=== PATIENT | male | born 1980 | race Caucasian/White ===

== ENCOUNTER 2021-10-17 20:05 | Emergency (ER) | payer OTHER, SELFPAY ==
--- NOTE | ~2021-10-17 | XR_ITS ---
EXAMINATION: XR CHEST CLINICAL INFORMATION: Resolved chest pain COMPARISON: None TECHNIQUE: Frontal view of the chest was obtained. FINDINGS: No significant abnormality is noted involving the heart, lungs, mediastinum, bony thorax or soft tissues. XR/XR chest 1V IMPRESSION: Unremarkable examination.
[2021-10-17 20:34] VITALS: BP 158/97; PULSE 110; RESP 20; O2SAT 99; BMI 30.4
--- NOTE | 2021-10-17 20:39 | ECG_ITS ---
Test Reason : CP Blood Pressure : / mmHG Vent. Rate : 092 BPM Atrial Rate : 092 BPM P-R Int : 150 ms QRS Dur : 092 ms QT Int : 368 ms P-R-T Axes : 061 040 027 degrees QTc Int : 455 ms Normal sinus rhythm Possible Left atrial enlargement Otherwise normal EKG No previous ECGs available Referred By: Malgorzata Mcgrath Electronically Signed By:MARY MARIA
[2021-10-17 21:01] LABS: MANUAL DIFF FLAG NO
[2021-10-17 21:02] LABS: Basophils Percent Auto 0.5 % (0-2); Eosinophils Absolute Auto 0.7 X10*3/uL (0.0-0.4); Eosinophils Percent Auto 8.4 % (0-4); Hematocrit 43.3 % (42.0-52.0); Hemoglobin 15.1 g/dl (14.0-18.0); Imm Gran Abs Auto 0.02 X10*3/uL (0.00-0.03); Imm Gran Pct Auto 0.3 % (0.0-0.4); Lymphocytes Absolute Auto 2.3 X10*3/uL (1.2-4.9); Lymphocytes Percent Auto 29.3 % (20-40); Mean Corpuscular HGB Conc 34.9 g/dl (31.0-36.0); Mean Corpuscular Hemoglobin 28.8 pg (27.0-33.0); Mean Corpuscular Volume 82.5 fL (80.0-98.0); Mean Platelet Volume 8.9 fL (9.4-12.4); Monocytes Absolute Auto 0.5 X10*3/uL (0.1-1.2); Monocytes Percent Auto 5.9 % (2-11); Neutrophils Absolute Auto 4.3 x10*3/uL (2.0-8.3); Neutrophils Percent Auto 55.6 % (45-73); Platelet Count 308 X10*3/uL (160-400); Red Blood Count 5.25 X10*6/uL (4.60-5.80); Red Cell Distribution Width 13.4 % (11.0-16.0); White Blood Count 7.8 X10*3/uL (4.8-10.8)
[2021-10-17 21:17] LABS: Anion Gap 11 (12-20); Blood Urea Nitrogen 14 mg/dL (9-16); Calcium 9.9 mg/dL (8.4-10.2); Carbon Dioxide 26 mmol/L (22-29); Chloride 109 mmol/L (96-108); Creatinine Clr Calc Pharmacy 100.3; Estimated Glomerular Filt Rate > 60; Glucose Random 79 mg/dL (60-115); Potassium 4.3 mmol/L (3.3-5.1); Sodium 142 mmol/L (135-145)
[2021-10-17 21:21] LABS: Troponin-I High Sensitivity 13.6 ng/L (<3.5-35.0)
--- NOTE | 2021-10-17 22:36 | ED.CHESTPAIN ---
HPI - Chest Pain General Chief Complaint: Chest Pain Stated Complaint: chest pain ,elevated bps Time Seen by Provider: 10/17/21 22:28 Source: patient Mode of arrival: ambulatory Limitations: no limitations History of Present Illness HPI narrative: Patient comes to the emergency room complaining of intermittent chest pain. It started this morning, lasted for about an hour, then it went away. This afternoon patient has recurrent chest pain that lasted for approximately 20 minutes and then it self-resolved. At this time, patient states that he is asymptomatic. Patient denies shortness of breath, no palpitations, no abdominal pain. Related Data Allergies Allergy/AdvReac Type Severity Reaction Status Date / Time No Known Allergies Allergy Verified 10/17/21 22:29 Review of Systems Review of Systems: Constitutional : No Weight loss, No Fever, No Chills, No Night Sweats, No Fatigue, No Malaise ENT/Mouth : No Hearing loss, No Ear Pain, No Nasal Congestion, No Sinus Pain, No Hoarseness, No sore throat, No Rhinorrhea, No Swallowing Difficulty Eyes: No Eye Pain, No Swelling, No Redness, No Foreign Body, No Discharge, No Vision Changes Cardiovascular : Intermittent Chest Pain, No SOB, No Dyspnea on Exertion, No Orthopnea, No Edema, No Palpitations Respiratory : No Cough, No Sputum, No Wheezing, No Smoke Exposure, No Dyspnea Gastrointestinal : No Nausea, No Vomiting, No Diarrhea, No Constipation, No abdominal Pain, No Hematochezia, No Melena Genitourinary : no irregular bleeding, No Dysuria, No Urinary Frequency, No Hematuria, No Urinary Incontinence, No Urgency, No Flank Pain, No Urinary Flow Changes, No Hesitancy Musculoskeletal : No joint pain, No Myalgias, No Joint Swelling Skin : No Skin Lesions, No rash Neuro : No Weakness, No Numbness, No Paresthesias, No Loss of Consciousness, No Dizziness, No Headache Psych : No Anxiety/Panic, No Depression, No SI/HI/AH/VH, No Social Issues, Heme/Lymph: No Bruising, No Bleeding,No Lymphadenopathy Endocrine : No Polyuria, No Polydipsia, No Temperature Intolerance PMFSH Past Medical History Medical History Anxiety Depression Hx of completed stroke Hx of hepatitis C Indigestion Social History Social History Advance Directives: No Advance Directives Information Provided: Yes Physical Exam Vital Signs: Vital Signs: Last Vital Signs Pulse 110 H 10/17/21 20:34 Resp 20 10/17/21 20:34 BP 158/97 H 10/17/21 20:34 Pulse Ox 99 10/17/21 20:34 BMI result Body Mass Index 30.4 Const: Other: Appearance: Alert. Oriented X3. No acute distress. Eyes: Pupils equal, round and reactive to light. ENT: Pharynx normal. Neck: Normal inspection. Neck supple. No lymph nodes noted. No crepitus CVS: Normal heart rate and rhythm. Pulses normal. Normal S1 and S2 Respiratory: No respiratory distress. Breath sounds normal. No Wheezing. No rales Abdomen: Soft and nontender. No rigidity. No distention. good BS x4 Skin: Skin warm and dry. Normal skin color. Normal skin turgor. Extremities: No lower extremity edema. No lower extremity edema. No Lacerations. No Rash Neuro: Oriented X 3. No motor deficit. No sensory deficit. Moving all extermities. No slurred speech. Course Course Course Narrative: Patient's troponin will be repeated at midnight the sodas and EKG. Patient's troponin are stable, reviewed EKG has no acute changes. At this time, patient remains asymptomatic. Patient likely having musculoskeletal chest pain rather than cardiac. Patient instructed that if he continues having intermittent chest pain, he needs to follow up with his primary care physician and he may be a candidate for referral for a stress test MDM - Chest Pain Lab Data Result diagrams: 10/17/21 20:52 10/17/21 20:52 Labs: Lab Results 10/17/21 10/17/21 10/17/21 Range/Units 20:52 20:52 20:52 WBC 7.8 (4.8-10.8) X10*3/uL RBC 5.25 (4.60-5.80) X10*6/uL Hgb 15.1 (14.0-18.0) g/dl Hct 43.3 (42.0-52.0) % MCV 82.5 (80.0-98.0) fL MCH 28.8 (27.0-33.0) pg MCHC 34.9 (31.0-36.0) g/dl RDW 13.4 (11.0-16.0) % Plt Count 308 (160-400) X10*3/uL MPV 8.9 L (9.4-12.4) fL Immature Gran % (Auto) 0.3 (0.0-0.4) % Neut % (Auto) 55.6 (45-73) % Lymph % (Auto) 29.3 (20-40) % Chilton % (Auto) 5.9 (2-11) % Eos % (Auto) 8.4 H (0-4) % Baso % (Auto) 0.5 (0-2) % Lymph # (Auto) 2.3 (1.2-4.9) X10*3/uL [place]ilton # (Auto) 0.5 (0.1-1.2) X10*3/uL Eos # (Auto) 0.7 H (0.0-0.4) X10*3/uL Baso # (Auto) 0.0 (0.0-0.2) X10*3/uL Abs Immat Gran (auto) 0.02 (0.00-0.03) X10*3/uL Absolute Neuts (auto) 4.3 (2.0-8.3) x10*3/uL Absolute Nucleated RBC 0.000 (0.0-0.012) X10*3/uL Nucleated RBC % (auto) 0.0 (0.0-0.2) /100WBC Sodium 142 (135-145) mmol/L Potassium 4.3 (3.3-5.1) mmol/L Chloride 109 H (96-108) mmol/L Carbon Dioxide 26 (22-29) mmol/L Anion Gap 11 L (12-20) BUN 14 (9-16) mg/dL Creatinine 1.07 (0.5-1.4) mg/dL Estim Creat Clear Calc 100.3 Estimated GFR > 60 Random Glucose 79 (60-115) mg/dL Calcium 9.9 (8.4-10.2) mg/dL Troponin I High Sens 13.6 (<3.5-35.0) ng/L 10/17/21 10/18/21 Range/Units 23:07 00:20 WBC (4.8-10.8) X10*3/uL RBC (4.60-5.80) X10*6/uL Hgb (14.0-18.0) g/dl Hct (42.0-52.0) % MCV (80.0-98.0) fL MCH (27.0-33.0) pg MCHC (31.0-36.0) g/dl RDW (11.0-16.0) % Plt Count (160-400) X10*3/uL MPV (9.4-12.4) fL Immature Gran % (Auto) (0.0-0.4) % Neut % (Auto) (45-73) % Lymph % (Auto) (20-40) % Chilton % (Auto) (2-11) % Eos % (Auto) (0-4) % Baso % (Auto) (0-2) % Lymph # (Auto) (1.2-4.9) X10*3/uL Chilton # (Auto) (0.1-1.2) X10*3/uL Eos # (Auto) (0.0-0.4) X10*3/uL Baso # (Auto) (0.0-0.2) X10*3/uL Abs Immat Gran (auto) (0.00-0.03) X10*3/uL Absolute Neuts (auto) (2.0-8.3) x10*3/uL Absolute Nucleated RBC (0.0-0.012) X10*3/uL Nucleated RBC % (auto) (0.0-0.2) /100WBC Sodium (135-145) mmol/L Potassium (3.3-5.1) mmol/L Chloride (96-108) mmol/L Carbon Dioxide (22-29) mmol/L Anion Gap (12-20) BUN (9-16) mg/dL Creatinine (0.5-1.4) mg/dL Estim Creat Clear Calc Estimated GFR Random Glucose (60-115) mg/dL Calcium (8.4-10.2) mg/dL Troponin I High Sens 13.1 13.1 (<3.5-35.0) ng/L ECG Data ECG #1: Attestation: I personally reviewed and interpreted this ECG as follows: (Heart rate 92, no ST segment depression elevation, no T-wave inversion, QTC 455) ECG #2: Attestation: I personally reviewed and interpreted this ECG as follows: (Heart rate 84, no ST segment depression elevation, no T-wave inversion, QTC 472) Discharge Plan Discharge Clinical Impression: Atypical chest pain Patient Disposition: Home, Self-Care Instructions: Chest Pain (ED), Chest Wall Pain (ED) Additional Instructions: Please follow-up with your primary care physician tomorrow. If you have any worsening or new symptoms, please return to the emergency room or call 911
[2021-10-17 23:31] LABS: Troponin-I High Sensitivity 13.1 ng/L (<3.5-35.0)
--- NOTE | 2021-10-18 00:01 | ECG_ITS ---
Test Reason : REPEAT Blood Pressure : / mmHG Vent. Rate : 084 BPM Atrial Rate : 084 BPM P-R Int : 156 ms QRS Dur : 094 ms QT Int : 400 ms P-R-T Axes : 058 032 031 degrees QTc Int : 472 ms Normal sinus rhythm Normal ECG No significant changes when compared with the previous EKG of 17 oct 2021 Referred By: Malgorzata Mcgrath Electronically Signed By:MARY MARIA
[2021-10-18 00:47] LABS: Troponin-I High Sensitivity 13.1 ng/L (<3.5-35.0)
== END 2021-10-18 01:31 | disposition home or self-care (01) ==
PROVIDERS: Emergency Provider Emergency Medicine; PCP Physician Assistant
DX: R07.9 Chest pain, unspecified (principal); Z79.899 Other long term (current) drug therapy
CPT/HCPCS: 36415; 71045; 80048; 84484; 85025; 93005; 99284

== ENCOUNTER 2022-01-30 21:58 | Emergency (ER) | payer OTHER, SELFPAY ==
[2022-01-30 22:08] VITALS: BP 148/93; PULSE 108; RESP 16; TEMP 36.1; O2SAT 98; BMI 30.4
--- NOTE | 2022-01-30 23:32 | ED.GENADULT ---
HPI - General Adult General Chief complaint: General Medical Stated complaint: needs meds refill Time Seen by Provider: 01/30/22 22:39 Source: patient Mode of arrival: ambulatory History of Present Illness HPI narrative: 41-year-old male with past medical history anxiety, depression, CVA, hepatitis-C, presenting to the ED complaining of needing medication refill of his Doxepin as has been out for 3 days. Patient states he resides at [facility] in [place], they control/ manage his medications, unclear why he is out. States he has been unable to sleep without the medication. Admits memory issues from prior CVA and forgets during the day that he has been out of the med until at night when he is supposed to take it. denies SI/HI. Denies being out of any other medications Related Data Home Medications Medication Instructions Recorded Confirmed acetaminophen 650 mg 650 mg PO Q12H 01/03/22 01/03/22 tablet,extended release (Tylenol Arthritis Pain) aspirin 81 mg tablet,delayed 81 mg PO DAILY 01/03/22 01/03/22 release atomoxetine 40 mg capsule 40 mg PO QAM 01/03/22 01/03/22 (Strattera) buprenorphine 100 mg/0.5 mL mg SUBCUT 01/03/22 01/03/22 solution,exten.rel.subcutaneous syringe (Sublocade) bupropion HCl 150 mg tablet,12 hr 150 mg PO BID 01/03/22 01/03/22 sustained-release (Wellbutrin SR) calcium carb 800 mg-magnes hydrox ml PO 01/03/22 01/03/22 270 mg-simeth 80 mg/10 mL oral susp (Mylanta Tonight) clonidine HCl 0.1 mg tablet 0.1 mg PO BEDTIME 01/03/22 01/03/22 doxepin 50 mg capsule 50 mg PO BEDTIME 01/03/22 01/03/22 hydroxyzine HCl 50 mg tablet 50 mg PO BID 01/03/22 01/03/22 hydroxyzine pamoate 100 mg capsule 100 mg PO BEDTIME 01/03/22 01/03/22 lisdexamfetamine 10 mg capsule 10 mg PO DAILY 01/03/22 01/03/22 (Vyvanse) magnesium hydroxide 2,400 mg/10 mL 10 ml PO DAILY PRN 01/03/22 01/03/22 oral suspension (Milk Of Tammy Concentrated) naloxone 4 mg/actuation nasal 4 mg INTRANASAL Q2M PRN 01/03/22 01/03/22 spray (Narcan) nicotine (polacrilex) 4 mg buccal 4 mg BUCCAL Q2-4H PRN 01/03/22 01/03/22 lozenge nicotine 21 mg/24 hr daily 1 patch TRANSDERMAL DAILY 01/03/22 01/03/22 transdermal patch Previous Rx's Medication Instructions Recorded ibuprofen 400 mg tablet 400 mg PO Q12H PRN 30 Days #60 tab 01/03/22 pantoprazole 40 mg tablet,delayed 40 mg PO DAILY 90 Days #90 tab 01/03/22 release doxepin 50 mg capsule 50 mg PO BEDTIME #1 cap 01/30/22 Allergies Allergy/AdvReac Type Severity Reaction Status Date / Time No Known Allergies Allergy Verified 01/03/22 11:59 Review of Systems Review of Systems: Constitutional: No Fever, No Chills, No Fatigue, No Malaise ENT/Mouth: No Ear Pain, No sore throat, No Rhinorrhea Eyes: No Eye Pain, No Swelling, No Redness Cardiovascular: No Chest Pain, No SOB Respiratory: No Cough, No Dyspnea Gastrointestinal: No Nausea, No Vomiting, No Diarrhea, No Abdominal pain Musculoskeletal: No joint pain, No Myalgias, No Joint Swelling Skin: No Skin Lesions, No rash Neuro: No Weakness, No Headache Psych: No Anxiety/Panic, No Depression, No SI/HI/AH/VH, No Social Issues Yes all other systems are reviewed and are negative [facility] Past Medical History Attestation statement: The following information was validated with the patient. Medical History Anxiety Depression Hx of completed stroke Hx of hepatitis C Indigestion Family History Family History Father No problems noted. Mother No problems noted. Social History Social History Housing: House Alcohol intake: never Patient Tobacco Use Status: Current everyday Tobacco user Tobacco use type: Cigarette Cigarette Packs Per Day: 1 Cigarettes Per Day: 10 e-Cigarette/Vaping Use: Never Used Advance Directives: No Advance Directives Information Provided: No service: No Current occupational status: disabled Physical Exam ED Vital Signs: Vital Signs - 24 hr 01/30/22 22:08 Temperature 97.0 F Pulse Rate 108 H Respiratory Rate 16 Blood Pressure 148/93 H Pulse Oximetry 98 BMI result Body Mass Index 30.4 Const General: cooperative, healthy appearing, comfortable, no acute distress and well developed Orientation/consciousness: patient oriented x3 Limitations: no limitations HENMT Head: Yes normal to inspection and Yes atraumatic Ears: hearing grossly normal bilaterally General nose exam: Normal external nose present Face and sinus: Yes normal facial exam Eyes General: appearance normal, both eyes and all related structures EOM: EOMs intact bilaterally Neck Neck: Yes normal visual inspection and Yes no meningeal signs Resp Effort & Inspection: normal respiratory effort and no respiratory distress Cardio Rate: regular rate Heart sounds: S1 normal heart sound present and S2 normal heart sound present Skin Rashes: no rashes Wounds: no wounds Neuro General: patient oriented x3 and no meningeal signs Gait exam (Neuro): Normal gait present Extrem General: Yes normal to inspection Psych Attitude: cooperative Thought content: suicidality and no homicidality Insight: Good insight present (Psych) Medical Decision Making MDM Narrative Medical decision making narrative: 41-year-old male with past medical history anxiety, depression, CVA, hepatitis-C, presenting to the ED complaining of needing medication refill of his Doxepin as has been out for 3 days. On exam initially tachycardic, NAD/nontoxic appearing. Her medication refill history refilled 30 days worth of his Doxepin on 12/26 Spoke to staff member from [facility] Valdemar waldrop, confirmed patient has been out of his Doxepin x2 days. Report staff members hold on to medication bottles and dispensing medications to patient, however patient is responsible for calling in refills to pharmacy. > Due to patient's memory issues (from prior CVA) has not called in script. Discussed with patient will call in 1 pill dose of [facility]in to [facility] [address] and he needs to contact his prescriber tomorrow for appropriate refill Medical Records Medical records reviewed: Yes I reviewed the patient's medical records. Lab Data Lab results reviewed: Yes I reviewed the patient's lab results. Discharge Plan Discharge Clinical Impression: Medication refill Patient Disposition: Home, Self-Care Instructions: Medicine Refill (ED) Additional Instructions: 1 pill of your [facility] Please call your provider tomorrow for proper refill/remainder of your medication Prescriptions: New doxepin 50 mg capsule 50 mg PO BEDTIME Qty: 1 0RF No Action aspirin 81 mg tablet,delayed release (DR/EC) 81 mg PO DAILY 0RF clonidine HCl 0.1 mg tablet 0.1 mg PO BEDTIME 0RF doxepin 50 mg capsule 50 mg PO BEDTIME 0RF naloxone [Narcan] 4 mg/actuation spray,non-aerosol 4 mg intranasal Q2M PRN0RF Rx Instructions: spray 1 dose into ONE nostril; alternate nostrils w each dose until help arrives Mylanta Tonight 800-270-80 mg/10 mL suspension PO 0RF hydroxyzine HCl 50 mg tablet 50 mg PO BID 0RF hydroxyzine pamoate 100 mg capsule 100 mg PO BEDTIME 0RF atomoxetine [Strattera] 40 mg capsule 40 mg PO QAM 0RF Vyvanse 10 mg capsule 10 mg PO DAILY 0RF bupropion HCl [Wellbutrin SR] 150 mg tablet sustained-release 12 hr 150 mg PO BID 0RF Sublocade 100 mg/0.5 mL solution, extended rel syringe subcut 0RF acetaminophen [Tylenol Arthritis Pain] 650 mg tablet extended release 650 mg PO Q12H 0RF nicotine 21 mg/24 hr patch 24 hour 1 patch transdermal DAILY 0RF nicotine (polacrilex) 4 mg lozenge 4 mg buccal Q2-4H PRN0RF magnesium hydroxide [Milk Of Magnesia Concentrated] 2,400 mg/10 mL suspension 10 ml PO DAILY PRN0RF ibuprofen 400 mg tablet 400 mg PO Q12H PRN (Reason: pain) 30 Days Qty: 60 2RF pantoprazole 40 mg tablet,delayed release (DR/EC) 40 mg PO DAILY 90 Days Qty: 90 1RF Referrals: [facility] [Provider Group] - 2 days Ryan Summers PA-C [Physician Machine Cloth Examiner] - 1 day
[2022-01-30 23:57] VITALS: BP 140/100; PULSE 102; RESP 17; TEMP 37.1; O2SAT 96
== END 2022-01-31 00:07 | disposition home or self-care (01) ==
PROVIDERS: Emergency Provider Emergency Medicine
DX: Z76.0 Encounter for issue of repeat prescription (principal); Z79.899 Other long term (current) drug therapy
CPT/HCPCS: 99282; 99284

== ENCOUNTER 2022-05-15 21:00 | Emergency (ER) | payer OTHER, SELFPAY ==
[2022-05-15 21:08] VITALS: BP 151/104; PULSE 108; RESP 18; TEMP 36.8; O2SAT 97; BMI 30.8
--- NOTE | 2022-05-15 21:27 | ED.RECABL ---
HPI - Recheck/Abnormal Lab/Rx General Chief Complaint: General Medical Stated Complaint: med refill Time Seen by Provider: 05/15/22 21:24 Source: patient Mode of arrival: ambulatory Limitations: no limitations History of Present Illness HPI narrative: 42-year-old male presenting to the ED for medication refill for his Doxepin 75 mg to be taken every bed night reports that he last took last night. Denies any other symptoms related to this including SI/HI/auditory visualizations thoughts of self-injury or any other symptoms complaints or concerns at this time. MD complaint: medication refill request Related Data Home Medications Medication Instructions Recorded Confirmed acetaminophen 650 mg 650 mg PO Q12H 01/03/22 04/01/22 tablet,extended release (Tylenol Arthritis Pain) aspirin 81 mg tablet,delayed 81 mg PO DAILY 01/03/22 04/01/22 release atomoxetine 40 mg capsule 40 mg PO QAM 01/03/22 04/01/22 (Strattera) bupropion HCl 150 mg tablet,12 hr 150 mg PO BID 01/03/22 04/01/22 sustained-release (Wellbutrin SR) calcium carb 800 mg-magnes hydrox ml PO 01/03/22 04/01/22 270 mg-simeth 80 mg/10 mL oral susp (Mylanta Tonight) clonidine HCl 0.1 mg tablet 0.1 mg PO BEDTIME 01/03/22 04/01/22 hydroxyzine HCl 50 mg tablet 50 mg PO BID 01/03/22 04/01/22 hydroxyzine pamoate 100 mg capsule 100 mg PO BEDTIME 01/03/22 04/01/22 lisdexamfetamine 10 mg capsule 10 mg PO DAILY 01/03/22 04/01/22 (Vyvanse) magnesium hydroxide 2,400 mg/10 mL 10 ml PO DAILY PRN 01/03/22 04/01/22 oral suspension (Milk Of Magnesia Concentrated) naloxone 4 mg/actuation nasal 4 mg intranasal Q2M PRN 01/03/22 04/01/22 spray (Narcan) nicotine (polacrilex) 4 mg buccal 4 mg buccal Q2-4H PRN 01/03/22 04/01/22 lozenge nicotine 21 mg/24 hr daily 1 patch transdermal DAILY 01/03/22 04/01/22 transdermal patch buprenorphine 100 mg/0.5 mL 300 mg subcut 4XW 04/01/22 04/01/22 solution,exten.rel.subcutaneous syringe (Sublocade) Previous Rx's Medication Instructions Recorded ibuprofen 400 mg tablet 400 mg PO Q12H PRN pain 30 days 01/03/22 #60 tabs pantoprazole 40 mg tablet,delayed 40 mg PO DAILY 90 days #90 tabs 01/03/22 release doxepin 50 mg capsule 50 mg PO BEDTIME #1 cap 01/30/22 doxepin 75 mg capsule 75 mg PO BEDTIME sleep #30 caps 05/15/22 Allergies Allergy/AdvReac Type Severity Reaction Status Date / Time No Known Allergies Allergy Verified 04/01/22 14:01 Review of Systems Review of Systems: Constitutional : No Weight loss, No Fever, No Chills, No Night Sweats, No Fatigue, No Malaise ENT/Mouth : No Hearing loss, No Ear Pain, No Nasal Congestion, No Sinus Pain, No Hoarseness, No sore throat, No Rhinorrhea, No Swallowing Difficulty Eyes: No Eye Pain, No Swelling, No Redness, No Foreign Body, No Discharge, No Vision Changes Cardiovascular : No Chest Pain, No SOB, No Dyspnea on Exertion, No Orthopnea, No Edema, No Palpitations Respiratory : No Cough, No Sputum, No Wheezing, No Smoke Exposure, No Dyspnea Gastrointestinal : No Nausea, No Vomiting, No Diarrhea, No Constipation, No abdominal Pain, No Hematochezia, No Melena Genitourinary : no irregular bleeding, No Dysuria, No Urinary Frequency, No Hematuria, No Urinary Incontinence, No Urgency, No Flank Pain, No Urinary Flow Changes, No Hesitancy Musculoskeletal : No joint pain, No Myalgias, No Joint Swelling Skin : No Skin Lesions, No rash Neuro : No Weakness, No Numbness, No Paresthesias, No Loss of Consciousness, No Dizziness, No Headache Psych : No Anxiety/Panic, No Depression, No SI/HI/AH/VH, No Social Issues, Heme/Lymph: No Bruising, No Bleeding,No Lymphadenopathy Endocrine : No Polyuria, No Polydipsia, No Temperature Intolerance Yes all other systems are reviewed and are negative PMFSH Past Medical History Attestation statement: The following information was validated with the patient. Source: old records reviewed and nursing notes reviewed Medical History Anxiety Depression Hx of completed stroke Hx of hepatitis C Indigestion Surgical History No pertinent past surgical history Family History Family History Father No problems noted. Mother No problems noted. Other Mental health disorder Substance use disorder Social History Social History Housing: House Alcohol intake: never Patient Tobacco Use Status: Current everyday Tobacco user Tobacco use type: Cigarette Cigarette Packs Per Day: 0.5 Cigarettes Per Day: 10 e-Cigarette/Vaping Use: Never Used Second Hand Smoke Exposure: Yes Advance Directives: No service: No Current occupational status: disabled Cognitive needs: No Hearing needs: No Vision needs: Yes (glasses) Physical Exam Vital Signs: Vital Signs: Last Vital Signs Temp 98.2 F 05/15/22 21:08 Pulse 108 H 05/15/22 21:08 Resp 18 05/15/22 21:08 BP 151/104 H 05/15/22 21:08 Pulse Ox 97 05/15/22 21:08 O2 Del Method 05/15/22 21:08 BMI result Body Mass Index 30.8 vital signs have been reviewed as normal and appeared to be correct. Blood pressure normal Heart rate normal. Respiration rate normal. Temperature normal. Oxygen saturation normal. Appearance: Alert. Oriented X3. No acute distress. Head: Normal external exam. Normocephalic. Atraumatic. Eyes: PERRLA. EOMI. Conjunctiva and sclera normal. Eyelids normal. ENT: Pharynx normal. Uvula midline. Moist mucous membranes. Neck: Normal inspection. Neck supple. FROM. CVS: Normal heart rate and rhythm. Respiratory: No respiratory distress. Painless inspiration. Skin: Skin warm and dry. Normal skin color. Normal skin turgor. No rashes/lesions/lacerations noted. Extremities: No lower extremity edema. Extremities exhibit normal range of motion. Extremities nontender. Neuro: Oriented X 3. No motor deficit. No sensory deficit. Reflexes normal. Normal steady gait. No focal neuro deficits noted. Vascular: + radial pulses/+ 2 distal pedal pulses/+2 dorsalis pedis b/l. Normal cap refill. No cyanosis noted to upper extremity nails and lower extremity toes nails. Course Course Course Narrative: Will refill the patient's medication instructed to follow-up with PCP. Patient understands agrees with this plan. MDM - Recheck/Abnormal Lab/Rx Medical Records Attestation: I reviewed the patient's medical records. Discharge Plan Discharge Clinical Impression: Medication refill Patient Disposition: Home, Self-Care Instructions: Medicine Refill (ED) Prescriptions: New doxepin 75 mg capsule 75 mg PO BEDTIME Qty: 30 0RF No Action doxepin 50 mg capsule 50 mg PO BEDTIME Qty: 1 0RF aspirin 81 mg tablet,delayed release (DR/EC) 81 mg PO DAILY clonidine HCl 0.1 mg tablet 0.1 mg PO BEDTIME naloxone [Narcan] 4 mg/actuation spray,non-aerosol 4 mg intranasal Q2M PRN Rx Instructions: spray 1 dose into ONE nostril; alternate nostrils w each dose until help arrives Mylanta Tonight 800-270-80 mg/10 mL suspension PO hydroxyzine HCl 50 mg tablet 50 mg PO BID hydroxyzine pamoate 100 mg capsule 100 mg PO BEDTIME atomoxetine [Strattera] 40 mg capsule 40 mg PO QAM Vyvanse 10 mg capsule 10 mg PO DAILY bupropion HCl [Wellbutrin SR] 150 mg tablet sustained-release 12 hr 150 mg PO BID acetaminophen [Tylenol Arthritis Pain] 650 mg tablet extended release 650 mg PO Q12H nicotine 21 mg/24 hr patch 24 hour 1 patch transdermal DAILY nicotine (polacrilex) 4 mg lozenge 4 mg buccal Q2-4H PRN magnesium hydroxide [Milk Of Magnesia Concentrated] 2,400 mg/10 mL suspension 10 ml PO DAILY PRN ibuprofen 400 mg tablet 400 mg PO Q12H PRN (Reason: pain) 30 Days Qty: 60 2RF pantoprazole 40 mg tablet,delayed release (DR/EC) 40 mg PO DAILY 90 Days Qty: 90 1RF Sublocade 100 mg/0.5 mL solution, extended rel syringe 300 mg subcut 4XW Referrals: Ryan Summers PA-C [Primary Care Provider] - 2 days
--- NOTE | 2022-05-15 21:35 | PC.NURSE ---
Seen snd discharged by PA
== END 2022-05-15 21:35 | disposition home or self-care (01) ==
PROVIDERS: Emergency Provider Internal Medicine; PCP Physician Assistant
DX: Z76.0 Encounter for issue of repeat prescription (principal); F41.9 Anxiety disorder, unspecified; F32.A Depression, unspecified; F17.200 Nicotine dependence, unspecified, uncomplicated
CPT/HCPCS: 99282

== ENCOUNTER 2022-05-31 12:16 | Emergency (ER) | payer OTHER, SELFPAY ==
[2022-05-31 13:05] VITALS: BP 140/83; PULSE 78; RESP 18; TEMP 37; O2SAT 100; BMI 30.4
--- NOTE | 2022-05-31 15:22 | ED_ITS ---
HPI - Eye Problem General Chief complaint: Eye Problems Stated complaint: eye pain Time Seen by Provider: 05/31/22 15:19 Source: patient Mode of arrival: ambulatory Limitations: no limitations History of Present Illness chief complaint: eye redness Onset (ago): day(s) (1 day) Onset description: gradual Duration: constant and progressively worsening Location: right eye Eye Symptoms: redness, itching and discharge Place: home Mechanism: none Severity: mild If Pain, Quality: aching Context: contact lens use Associated symptoms: none Treatments Prior to Arrival: irrigated eye Related Data Patient tetanus UTD: Yes Home Medications Medication Instructions Recorded Confirmed acetaminophen 650 mg 650 mg PO Q12H 01/03/22 04/01/22 tablet,extended release (Tylenol Arthritis Pain) aspirin 81 mg tablet,delayed 81 mg PO DAILY 01/03/22 04/01/22 release atomoxetine 40 mg capsule 40 mg PO QAM 01/03/22 04/01/22 (Strattera) bupropion HCl 150 mg tablet,12 hr 150 mg PO BID 01/03/22 04/01/22 sustained-release (Wellbutrin SR) calcium carb 800 mg-magnes hydrox ml PO 01/03/22 04/01/22 270 mg-simeth 80 mg/10 mL oral susp (Mylanta Tonight) clonidine HCl 0.1 mg tablet 0.1 mg PO BEDTIME 01/03/22 04/01/22 hydroxyzine HCl 50 mg tablet 50 mg PO BID 01/03/22 04/01/22 hydroxyzine pamoate 100 mg capsule 100 mg PO BEDTIME 01/03/22 04/01/22 lisdexamfetamine 10 mg capsule 10 mg PO DAILY 01/03/22 04/01/22 (Vyvanse) magnesium hydroxide 2,400 mg/10 mL 10 ml PO DAILY PRN 01/03/22 04/01/22 oral suspension (Milk Of Magnesia Concentrated) naloxone 4 mg/actuation nasal 4 mg intranasal Q2M PRN 01/03/22 04/01/22 spray (Narcan) nicotine (polacrilex) 4 mg buccal 4 mg buccal Q2-4H PRN 01/03/22 04/01/22 lozenge nicotine 21 mg/24 hr daily 1 patch transdermal DAILY 01/03/22 04/01/22 transdermal patch buprenorphine 100 mg/0.5 mL 300 mg subcut 4XW 04/01/22 04/01/22 solution,exten.rel.subcutaneous syringe (Sublocade) Previous Rx's Medication Instructions Recorded ibuprofen 400 mg tablet 400 mg PO Q12H PRN pain 30 days 01/03/22 #60 tabs pantoprazole 40 mg tablet,delayed 40 mg PO DAILY 90 days #90 tabs 01/03/22 release doxepin 50 mg capsule 50 mg PO BEDTIME #1 cap 01/30/22 doxepin 75 mg capsule 75 mg PO BEDTIME sleep #30 caps 05/15/22 ciprofloxacin HCl 0.3 % eye drops See Rx Instructions 05/31/22 ophthalmic-Right .COMPLEX #10 mL Allergies Allergy/AdvReac Type Severity Reaction Status Date / Time No Known Allergies Allergy Verified 04/01/22 14:01 Review of Systems Review of Systems: Constitutional : No fevers, no chills, No changes in activity, No lethargy, No recent prior head injury, No agitation, No increased fussiness ENT/Mouth : No Ear Pain, No Nasal discharge/drainage Eyes: No Vision changes/blurry/decreased vision, No Eye Pain, No Swelling, + Redness, No Foreign Body, No Photophobia, + discharge, + drainage, + itching, no eyelid edema, + contact lens uses, no recent welding, no bleeding Cardiovascular : No Chest Pain, No SOB Respiratory : No Cough Gastrointestinal : No Nausea, No Vomiting, No abdominal Pain Genitourinary : No Dysuria, No Urinary Frequency, No Urinary Incontinence, No Urgency, No Flank Pain Musculoskeletal : No joint pain, No neck stiffness, No back pain/injury Skin : No lacerations Neuro : No unsteady gait, No Paresthesias, No Loss of Consciousness, No altered mental status, No dizziness, No Headache Denies past medical history of HIV, recent trauma, coagulopathy, recent spinal/ epidural procedure, new medication, URI symptoms, close contacts with similar symptoms, tick bite, or known CO2 exposure. Yes all other systems are reviewed and are negative PMFSH Past Medical History Attestation statement: The following information was validated with the patient. Source: old records reviewed and nursing notes reviewed Medical History Anxiety Depression Hx of completed stroke Hx of hepatitis C Indigestion Surgical History No pertinent past surgical history Family History Family History Father No problems noted. Mother No problems noted. Other Mental health disorder Substance use disorder Social History Social History Housing: House Alcohol intake: never Patient Tobacco Use Status: Current everyday Tobacco user Tobacco use type: Cigarette Cigarette Packs Per Day: 0.5 Cigarettes Per Day: 10 e-Cigarette/Vaping Use: Never Used Second Hand Smoke Exposure: Yes service: No Current occupational status: disabled Cognitive needs: No Hearing needs: No Vision needs: Yes (glasses) Physical Exam Vital Signs: Vital Signs: Last Vital Signs Temp 98.6 F 05/31/22 13:05 Pulse 78 05/31/22 13:05 Resp 18 05/31/22 13:05 BP 140/83 H 05/31/22 13:05 Pulse Ox 100 05/31/22 13:05 O2 Del Method 05/31/22 13:05 BMI result Body Mass Index 30.4 vital signs have been reviewed as normal and appeared to be correct. Blood pressure normal. Heart rate normal. Respiration rate normal. Temperature nor mal. Oxygen saturation normal. Appearance: Alert. Oriented X3. No acute distress. Head: Normal external exam. Normocephalic. Atraumatic. No Wills signs noted. No raccoon eyes noted Eyes: PERRLA. EOMI. Right conjunctiva/sclera erythematous with purulent discharge consistent with bacterial conjunctivitis. The left conjunctiva/sclera within normal limits. Cornea are normal. Funduscopic exam within normal limits. Sclera normal. Eyelids normal. No papilledema noted. Anterior chamber normal. No photophobia noted. ENT: EAC normal. TM's Normal. Pharynx normal. Uvula midline. Moist mucous membranes. Neck: Normal inspection. Neck supple. FROM. No adenopathy. Thyroid Normal. No meningeal signs. No neck mass noted. CVS: Normal heart rate and rhythm. Heart sound normal. No murmurs noted. Pulses normal throughout. Respiratory: No respiratory distress. Painless inspiration. Breath sounds normal. Back: Full range of motion noted. Skin: Skin warm and dry. Normal skin color. Normal skin turgor. No rashes/lesions/lacerations noted. Extremities: No lower extremity edema. Extremities exhibit normal range of motion. Extremities nontender. Neuro: Oriented X 3. No motor deficit. No sensory deficit. Reflexes normal. Course Course Course Narrative: Patient right-sided bacterial conjunctivitis. Due to contact lens. Explained to patient not to wear the contact lens. Will DC home with antibiotics. And instructions return if any new worsening 7 follow-up with primary care provider. Patient understands agrees with this plan. MDM - Eye Problem Medical Records Attestation: I reviewed the patient's medical records. Discharge Plan Discharge Clinical Impression: Acute bacterial conjunctivitis of right eye Patient Disposition: Home, Self-Care Instructions: How to Use Eye Drops (ED), Conjunctivitis (ED) Prescriptions: New ciprofloxacin HCl 0.3 % drops See Rx Instructions .ROUTE .COMPLEX Qty: 10 0RF Rx Instructions: put 1-2 drps in affected eye(s) every 2hr up to 8 times/day x2days; then 4 times/day x5days No Action doxepin 50 mg capsule 50 mg PO BEDTIME Qty: 1 0RF doxepin 75 mg capsule 75 mg PO BEDTIME Qty: 30 0RF aspirin 81 mg tablet,delayed release (DR/EC) 81 mg PO DAILY clonidine HCl 0.1 mg tablet 0.1 mg PO BEDTIME naloxone [Narcan] 4 mg/actuation spray,non-aerosol 4 mg intranasal Q2M PRN Rx Instructions: spray 1 dose into ONE nostril; alternate nostrils w each dose until help arrives Mylanta Tonight 800-270-80 mg/10 mL suspension PO hydroxyzine HCl 50 mg tablet 50 mg PO BID hydroxyzine pamoate 100 mg capsule 100 mg PO BEDTIME atomoxetine [Strattera] 40 mg capsule 40 mg PO QAM Vyvanse 10 mg capsule 10 mg PO DAILY bupropion HCl [Wellbutrin SR] 150 mg tablet sustained-release 12 hr 150 mg PO BID acetaminophen [Tylenol Arthritis Pain] 650 mg tablet extended release 650 mg PO Q12H nicotine 21 mg/24 hr patch 24 hour 1 patch transdermal DAILY nicotine (polacrilex) 4 mg lozenge 4 mg buccal Q2-4H PRN magnesium hydroxide [Milk Of Magnesia Concentrated] 2,400 mg/10 mL suspension 10 ml PO DAILY PRN ibuprofen 400 mg tablet 400 mg PO Q12H PRN (Reason: pain) 30 Days Qty: 60 2RF pantoprazole 40 mg tablet,delayed release (DR/EC) 40 mg PO DAILY 90 Days Qty: 90 1RF Sublocade 100 mg/0.5 mL solution, extended rel syringe 300 mg subcut 4XW Referrals: Ryan Summers PA-C [Primary Care Provider] - 2 days
== END 2022-05-31 15:39 | disposition home or self-care (01) ==
PROVIDERS: Emergency Provider Emergency Medicine; PCP Physician Assistant
DX: H10.31 Unspecified acute conjunctivitis, right eye (principal); F17.210 Nicotine dependence, cigarettes, uncomplicated; E66.9 Obesity, unspecified; Z68.30 Body mass index [BMI] 30.0-30.9, adult; B19.20 Unspecified viral hepatitis C without hepatic coma; F11.20 Opioid dependence, uncomplicated; Z86.73 Personal history of transient ischemic attack (TIA), and cerebral infarction without residual deficits; Z79.82 Long term (current) use of aspirin; Z79.899 Other long term (current) drug therapy
CPT/HCPCS: 99283

== ENCOUNTER 2022-06-24 17:08 | Emergency (ER) | payer OTHER, SELFPAY ==
[2022-06-24 18:11] VITALS: BP 151/88; PULSE 100; RESP 20; TEMP 36.7; O2SAT 99; BMI 30.4
== END 2022-06-24 20:16 | disposition left against medical advice (07) ==
LOC: HO.ED 20:12
PROVIDERS: Emergency Provider Emergency Medicine
DX: L03.114 Cellulitis of left upper limb (principal); L03.113 Cellulitis of right upper limb; L03.116 Cellulitis of left lower limb; L03.115 Cellulitis of right lower limb; F11.20 Opioid dependence, uncomplicated; F17.200 Nicotine dependence, unspecified, uncomplicated; Z86.19 Personal history of other infectious and parasitic diseases
CPT/HCPCS: 99281

== ENCOUNTER 2022-10-01 08:14 | Outpatient (REF) | payer OTHER, SELFPAY ==
[2022-10-01 09:22] LABS: Hematocrit 47.9 % (42.0-52.0); Hemoglobin 16.1 g/dl (14.0-18.0); Mean Corpuscular HGB Conc 33.6 g/dl (31.0-36.0); Mean Corpuscular Hemoglobin 27.3 pg (27.0-33.0); Mean Corpuscular Volume 81.3 fL (80.0-98.0); Mean Platelet Volume 9.1 fL (9.4-12.4); Platelet Count 347 X10*3/uL (160-400); Red Blood Count 5.89 X10*6/uL (4.60-5.80); Red Cell Distribution Width 13.9 % (11.0-16.0); White Blood Count 8.4 X10*3/uL (4.8-10.8)
[2022-10-01 09:28] LABS: Estimated Average Glucose 97 mg/dL
[2022-10-01 11:56] LABS: Alanine Aminotransferase 32 U/L (0-40); Albumin Level 4.3 g/dL (3.5-5.0); Alkaline Phosphatase 101 U/L (39-117); Anion Gap 15 (12-20); Aspartate Amino Transferase 22 U/L (5-37); Bilirubin Total 0.5 mg/dL (0.0-1.0); Blood Urea Nitrogen 15 mg/dL (9-16); Calcium 9.5 mg/dL (8.4-10.2); Carbon Dioxide 25 mmol/L (22-29); Chloride 108 mmol/L (96-108); Cholesterol 218 mg/dL; Estimated Glomerular Filt Rate > 60; Glucose Fasting 63 mg/dL (60-99); HDL Cholesterol 66 mg/dL; LDL Cholesterol Calculated 124 mg/dl; Potassium 4.3 mmol/L (3.3-5.1); Sodium 144 mmol/L (135-145); TSH reflex Free T4 3.71 uIU/mL (0.32-4.0); Total Protein 7.4 g/dL (6.5-8.0); Triglycerides 143 mg/dL
[2022-10-05 12:12] LABS: HCV Log PCR <1.18 NOT DETECTED Log IU/mL (NOT DETECTED); HepC Viral Load <15 NOT DETECTED IU/mL (NOT DETECTED)
== END 2022-10-01 08:15 | disposition home or self-care (01) ==
LOC: HO.LAB 08:14
PROVIDERS: PCP Physician Assistant; Visit Provider Physician Assistant
DX: Z13.29 Encounter for screening for other suspected endocrine disorder (principal); I63.9 Cerebral infarction, unspecified; Z86.19 Personal history of other infectious and parasitic diseases
CPT/HCPCS: 36415; 80053; 80061; 83036; 84443; 85027; 87522

== ENCOUNTER 2023-04-03 11:26 | Outpatient (REF) | payer OTHER, SELFPAY ==
--- NOTE | ~2023-04-03 | MR_ITS ---
EXAMINATION: MR BRAIN WITHOUT CONTRAST CLINICAL INFORMATION: Cerebral infarction. Cerebral vascular accident in 2005. Memory impairment. COMPARISON: None available. TECHNIQUE: MRI of the brain was obtained using routine sequences without contrast. FINDINGS: No focal restricted diffusion is demonstrated to suggest acute or subacute cerebral ischemia. No evidence of acute or chronic hemorrhagic products on heme-sensitive imaging. Chronic region of encephalomalacia within the right occipital lobe. Chronic lacunar infarcts of the right greater than left cerebellar hemispheres. No additional parenchymal signal abnormalities. Persistent cavum septum pellucidum. Otherwise, the ventricles are normal in morphology and size. No abnormal mass effect. No midline shift. Normal appearance of the pituitary gland. Normal positioning of the cerebellar tonsils. Normal arterial and venous vascular flow voids are present. Normal, homogeneous marrow signal. Mild mucosal thickening of the paranasal sinuses. No signal abnormalities within the mastoids. MR/MR head/brain wo con IMPRESSION: 1. No acute intracranial abnormalities. 2. Chronic region of encephalomalacia within the right occipital lobe. Chronic lacunar infarcts of the right greater than left cerebellar hemispheres.
== END 2023-04-03 11:27 | disposition home or self-care (01) ==
LOC: HO.MRI 11:26
PROVIDERS: PCP Physician Assistant; Visit Provider Physician Assistant
DX: I63.9 Cerebral infarction, unspecified (principal)
CPT/HCPCS: 70551

== ENCOUNTER 2023-06-21 01:16 | Emergency (ER) | payer OTHER, SELFPAY ==
[2023-06-21 01:36] VITALS: BP 148/72; PULSE 88; O2SAT 99
[2023-06-21 01:43] VITALS: BP 134/89; PULSE 105; RESP 16; TEMP 36.8; O2SAT 95; BMI 28.9
[2023-06-21 01:45] VITALS: BP 134/89; PULSE 105; RESP 16; TEMP 36.8; O2SAT 95
--- NOTE | 2023-06-21 02:16 | ED_ITS ---
HPI - General Adult General Chief complaint: General Medical Stated complaint: TBI, Foot pain Time Seen by Provider: 06/21/23 01:35 Source: patient Mode of arrival: EMS Limitations: no limitations History of Present Illness HPI narrative: Patient history of TBI with history of substance abuse was set half a house went to the basement humping prior says that he could not find his room patient is a very unkept condition been to [facility] a house for last 1 week denies any substance abuse at this time he says he is forgetful Related Data Home Medications Medication Instructions Recorded Confirmed aspirin 81 mg tablet,delayed 81 mg PO DAILY 01/03/22 03/04/23 release clonidine HCl 0.1 mg tablet 0.1 mg PO BEDTIME 01/03/22 03/04/23 hydroxyzine HCl 50 mg tablet 50 mg PO BID 01/03/22 03/04/23 hydroxyzine pamoate 100 mg capsule 100 mg PO BEDTIME 01/03/22 03/04/23 naloxone 4 mg/actuation nasal 4 mg intranasal Q2M PRN 01/03/22 03/04/23 spray (Narcan) nicotine 21 mg/24 hr daily 1 patch transdermal DAILY 01/03/22 03/04/23 transdermal patch buprenorphine 100 mg/0.5 mL 300 mg subcut 4XW 04/01/22 03/04/23 solution,exten.rel.subcutaneous syringe (Sublocade) Previous Rx's Medication Instructions Recorded doxepin 50 mg capsule 50 mg PO BEDTIME #1 cap 01/30/22 doxepin 75 mg capsule 75 mg PO BEDTIME sleep #30 caps 05/15/22 gabapentin 100 mg capsule 100 mg PO TID #30 caps 03/03/23 (Neurontin) lisdexamfetamine 30 mg capsule 30 mg PO QAM 30 days #30 caps 03/04/23 (Vyvanse) valacyclovir 1 gram tablet 1,000 mg PO Q8H 5 days #15 tabs 03/04/23 (Valtrex) bupropion HCl 150 mg tablet,12 hr 150 mg PO BID 30 days #60 tabs 03/06/23 sustained-release (Wellbutrin SR) pantoprazole 40 mg tablet,delayed 40 mg PO DAILY 90 days #90 tabs 03/10/23 release nicotine (polacrilex) 2 mg gum 2 mg buccal Q2H 30 days #110 ea 04/07/23 ibuprofen 400 mg tablet 400 mg PO Q12H PRN pain 30 days 04/30/23 #60 tabs Allergies Allergy/AdvReac Type Severity Reaction Status Date / Time No Known Allergies Allergy Verified 03/04/23 09:19 Review of Systems Review of Systems: Yes all other systems are reviewed and are negative [facility] Past Medical History Medical History Anxiety Depression Hx of completed stroke Hx of hepatitis C Indigestion Surgical History No pertinent past surgical history Family History Family History Father No problems noted. Mother No problems noted. Other Mental health disorder Substance use disorder Social History Social History Housing: House Alcohol intake: never Patient Tobacco Use Status: Current everyday Tobacco user Tobacco use type: Cigarette Cigarette Packs Per Day: 0.5 Cigarettes Per Day: 15 e-Cigarette/Vaping Use: Never Used Second Hand Smoke Exposure: Yes Advance Directives: No Advance Directives Information Provided: No service: No Current occupational status: disabled Cognitive needs: No Hearing needs: No Vision needs: Yes (glasses) Physical Exam ED Vital Signs: Vital Signs - 24 hr 06/21/23 01:43 06/21/23 01:45 Temperature 98.2 F 98.2 F Pulse Rate 105 H 105 H Respiratory Rate 16 16 Blood Pressure 134/89 134/89 Pulse Oximetry 95 95 Oxygen Delivery Method Room Air Room Air BMI result Body Mass Index 28.9 Appearance: Alert. Oriented X3. No acute distress. Unkept condition Eyes: PERRLA, No Nystagmus ENT: Pharynx normal. Oral Mucosa moist Neck: Normal inspection. Neck supple. CVS: Normal heart rate and rhythm. Pulses normal. Respiratory: No respiratory distress. Equal air entry bilateral, no wheezing/rales/rhonchi Abdomen: Soft and nontender. Bowel sounds are present, no mass palpable, no CVA tenderness Skin: Skin warm and dry. Normal skin color. Normal skin turgor. Extremities: No lower extremity edema. No calf tenderness Neuro: Oriented X 3. No motor deficit. No sensory deficit.No cerebellar signs , cranial nerves II-XII intact Medical Decision Making Medical Decision Making MDM Narrative: Patient's substance abuse unkept condition his TBI no focal deficit at this time discharge patient back to [facility] refused to give the urine sample Discharge Plan Discharge Clinical Impression: Closed traumatic brain injury Patient Disposition: Home, Self-Care Instructions: Cognitive Disorders after Traumatic Brain Injury (ED) Additional Instructions: Follow-up with your psychiatrist/therapist Prescriptions: No Action bupropion HCl [Wellbutrin SR] 150 mg tablet sustained-release 12 hr 150 mg PO BID 30 Days Qty: 60 3RF pantoprazole 40 mg tablet,delayed release (DR/EC) 40 mg PO DAILY 90 Days Qty: 90 1RF nicotine (polacrilex) 2 mg gum 2 mg buccal Q2H 30 Days Qty: 110 1RF ibuprofen 400 mg tablet 400 mg PO Q12H PRN (Reason: pain) 30 Days Qty: 60 2RF doxepin 50 mg capsule 50 mg PO BEDTIME Qty: 1 0RF doxepin 75 mg capsule 75 mg PO BEDTIME Qty: 30 0RF aspirin 81 mg tablet,delayed release (DR/EC) 81 mg PO DAILY clonidine HCl 0.1 mg tablet 0.1 mg PO BEDTIME naloxone [Narcan] 4 mg/actuation spray,non-aerosol 4 mg intranasal Q2M PRN Rx Instructions: spray 1 dose into ONE nostril; alternate nostrils w each dose until help arrives hydroxyzine HCl 50 mg tablet 50 mg PO BID hydroxyzine pamoate 100 mg capsule 100 mg PO BEDTIME nicotine 21 mg/24 hr patch 24 hour 1 patch transdermal DAILY Sublocade 100 mg/0.5 mL solution, extended rel syringe 300 mg subcut 4XW gabapentin [Neurontin] 100 mg capsule 100 mg PO TID Qty: 30 0RF Vyvanse 30 mg capsule 30 mg PO QAM 30 Days Qty: 30 0RF valacyclovir [Valtrex] 1 gram tablet 1,000 mg PO Q8H 5 Days Qty: 15 0RF
== END 2023-06-21 05:06 | disposition home or self-care (01) ==
PROVIDERS: Emergency Provider Internal Medicine; PCP Physician Assistant
DX: F19.10 Other psychoactive substance abuse, uncomplicated (principal); Z87.820 Personal history of traumatic brain injury; F17.210 Nicotine dependence, cigarettes, uncomplicated; Z86.19 Personal history of other infectious and parasitic diseases; Z79.899 Other long term (current) drug therapy; Z79.82 Long term (current) use of aspirin
CPT/HCPCS: 99284

== ENCOUNTER 2023-07-01 13:26 | Emergency (ER) | payer OTHER, SELFPAY ==
--- NOTE | ~2023-07-01 | XR_ITS ---
EXAMINATION: XR CHEST CLINICAL INFORMATION: Leukocytosis. COMPARISON: 10/17/2021 TECHNIQUE: Frontal view of the chest was obtained. FINDINGS: The cardiomediastinal silhouette is normal. There is no focal lung consolidation or pleural effusion. The bony structures are unremarkable. Axillary region calcifications are again noted. The soft tissues are otherwise unremarkable. XR/XR chest 1V IMPRESSION: No active cardiopulmonary disease. No significant change.
[2023-07-01 13:36] VITALS: BP 123/80; PULSE 79; RESP 18; TEMP 36.3; O2SAT 100; BMI 25.7
--- NOTE | 2023-07-01 13:36 | ED.GENADULT ---
HPI - General Adult General Chief complaint: Psychiatric Symptoms Stated complaint: Not taking meds/ETOH Time Seen by Provider: 07/01/23 14:57 Source: patient, RN notes reviewed and old records reviewed Mode of arrival: ambulatory History of Present Illness HPI narrative: 43-year-old male with past medical history of hepatitis-C, major depression, ADD, GERD, substance abuse, TBI, presenting to the ED complaining of increasing depression with SI & polysubstance abuse w/ heroin, cocaine, and ETOH. denies plan for SI, or HI. Does admit to history of ETOH withdrawal and withdrawal seizures. States he has been noncompliant with his medications for over week. Denies fever/chills, abdominal pain, nausea/vomiting, auditory/ visual hallucinations, trauma or fall Related Data Home Medications Medication Instructions Recorded Confirmed bupropion HCl 150 mg tablet,12 hr 150 mg PO BID 07/01/23 07/01/23 sustained-release clonidine HCl 0.1 mg tablet 0.1 mg PO TID PRN anxiety 07/01/23 07/01/23 doxepin 25 mg capsule 25 mg PO BEDTIME 07/01/23 07/01/23 hydroxyzine HCl 25 mg tablet 25 - 50 mg PO TID PRN Anxiety 07/01/23 07/01/23 lisdexamfetamine 30 mg capsule 30 mg PO QAM 07/01/23 07/01/23 (Vyvanse) pantoprazole 40 mg tablet,delayed 40 mg PO DAILY 07/01/23 07/01/23 release Allergies Allergy/AdvReac Type Severity Reaction Status Date / Time No Known Allergies Allergy Verified 03/04/23 09:19 Review of Systems Review of Systems: Constitutional: No Fever, No Chills, No Fatigue, No Malaise ENT/Mouth: No Hearing loss, No Ear Pain, No Nasal Congestion, No sore throat, No Rhinorrhea, No Swallowing Difficulty Eyes: No Eye Pain, No Swelling, No Redness, No Vision Changes Cardiovascular: No Chest Pain, No SOB Respiratory: No Cough, No Dyspnea Gastrointestinal: No Nausea, No Vomiting, No Diarrhea, No Constipation, No Abdominal pain Genitourinary: No Dysuria, No Urinary Frequency, No Hematuria, No Flank Pain Musculoskeletal: No joint pain, No Myalgias, No Joint Swelling Skin: No Skin Lesions, No rash Neuro: No Weakness, No Dizziness, No Headache Psych: No Anxiety/Panic, + Depression, + SI, No HI/AH/VH, + Social Issues Yes all other systems are reviewed and are negative Constitutional: Constitutional: Reports as per [facility] Past Medical History Attestation statement: The following information was validated with the patient. Source: old records reviewed Medical History Anxiety Depression Hx of completed stroke Hx of hepatitis C Indigestion Surgical History No pertinent past surgical history Family History Family History Father No problems noted. Mother No problems noted. Other Mental health disorder Substance use disorder Social History Social History Housing: House Alcohol intake: current Alcohol intake frequency: 3 or more drinks per day Patient Tobacco Use Status: Current everyday Tobacco user Tobacco use type: Cigarette Cigarette Packs Per Day: 0.5 Cigarettes Per Day: 15 Smoked in Last 30 Days: Yes e-Cigarette/Vaping Use: Never Used Second Hand Smoke Exposure: Yes Use of substances other than those prescribed or required for medical reasons: Yes Substance Use Type: Crack/Cocaine and Heroin Advance Directives: No Advance Directives Information Provided: Yes Healthcare Proxy: No Guardian: No service: No Current occupational status: disabled Cognitive needs: No Hearing needs: No Vision needs: Yes (glasses) Physical Exam ED Vital Signs: Vital Signs - 24 hr 07/01/23 13:36 07/01/23 20:02 07/02/23 05:42 Temperature 97.4 F 98.2 F 98.4 F Pulse Rate 79 68 66 Respiratory Rate 18 17 Blood Pressure 123/80 98/56 L 130/66 Pulse Oximetry 100 98 99 Oxygen Delivery Method Room Air Room Air Room Air BMI result Body Mass Index 25.7 Const General: cooperative, no acute distress, alert and poor hygiene Orientation/consciousness: patient oriented x3 Limitations: no limitations HENMT Head: Yes normal to inspection and Yes atraumatic Ears: hearing grossly normal bilaterally General nose exam: Normal external nose present Face and sinus: Yes normal facial exam Throat: Yes posterior oropharynx normal and Yes uvula midline Eyes General: appearance normal, both eyes and all related structures Pupils: Equal, round and reactive pupils present EOM: EOMs intact bilaterally Neck Neck: Yes normal visual inspection and Yes no meningeal signs Resp Effort & Inspection: normal respiratory effort and no respiratory distress Auscultation: clear to auscultation bilaterally Cardio Rate: regular rate Heart sounds: S1 normal heart sound present and S2 normal heart sound present GI Inspection: Yes normal to inspection Palpation (GI): Soft to palpation, nontender, no guarding and not rigid General: Yes no CVA tenderness Back/Spine/Pelvis Back: no CVA tenderness Skin Other: multiple superficial track wayne noted to bilateral upper extremities with induration. No erythema, fluctuance were streaking. Compartments soft Rashes: no rashes Neuro General: patient oriented x3, tone normal and no meningeal signs Cranial nerves: Yes CN's II-XII intact bilaterally and Yes Equal, round and reactive pupils present Gait exam (Neuro): Normal gait present Extrem General: Yes normal to inspection Psych Affect: Sad affect present Attitude: Guarded attititude/behavior present and Avoids eye contact (attititude/behavior) Thought content: Suicidality present, no hallucinations and Depressive thoughts present Course Course Course Narrative: This is an RME: Additional HPI, ROS, PE not included below will be deferred to primary provider. Patient is a 43 year old male who presents after not taking his medication. Admits to alcohol use and used heroin today. Patient admits he is very depressed and doesn't want to live. Plan: transfer to pod -1544-- leukocytosis of 18.1 > will obtain UA and CXR, no evidence of infection at this time. Low suspicion for severe sepsis. - Potassium low at 3.2 > p.o. repletion ordered. Mild transaminitis likely from ETOH abuse - UA with ketones, not infected. Tox screen positive for opiates, fentanyl, cocaine, THC, ethanol negative -1630-- ED care transferred to [facility] pending CXR and CARE eval Reevaluation(s) Reevaluation #1: XR/XR chest 1V IMPRESSION: Low lung volumes with no acute pulmonary finding. Patient was evaluated by care team; dual dx program in AM, patient agreeable with plan of care Time: 23:05 Reevaluation #2: Physician observation continued. dual dx bed search VS stable, no acute events overnight. dispo pending placement. 07/02/23 1105am Reevaluation #3: Physician observation ended at 12pm Patient to go to [facility] for inpatient treatment. stable for transfer. Medications Administered Generic Name Dose Route Start Last Admin Trade Name Freq PRN Reason Stop Dose Admin Cephalexin HCl 500 mg 07/02/23 00:00 07/02/23 05:35 Cephalexin 500 Mg Capsule PO 07/08/23 18:01 500 mg Q6H CANDIDO Administration Doxycycline Monohydrate 100 mg 07/01/23 16:00 07/02/23 05:02 Doxycycline Monohydrate 100 Mg Capsule PO 07/08/23 15:59 100 mg Q12H CANDIDO Administration Discontinued Medications Generic Name Dose Route Start Last Admin Trade Name Freq PRN Reason Stop Dose Admin Cephalexin HCl 500 mg 07/01/23 16:00 07/01/23 19:55 Cephalexin 500 Mg Capsule PO 07/08/23 15:59 500 mg Q6H CANDIDO Administration Potassium Chloride 60 meq 07/01/23 15:43 07/01/23 16:41 Potassium Chloride Er 20 Meq Tab.Er.Prt PO 07/01/23 15:44 60 meq ONCE ONE Administration Medical Decision Making Medical Decision Making [facility] Narrative: 43-year-old male with past medical history of hepatitis-C, major depression, ADD, GERD, substance abuse, TBI, presenting to the ED complaining of increasing depression with SI & polysubstance abuse w/ heroin, cocaine, and ETOH. denies plan for SI, or HI. On exam vital signs stable, NAD, nontoxic appearing, physical exam as above, suicidal without plan, multiple track wayne induration noted bilateral upper extremities, no I&D indicated at this time. Concern for polysubstance abuse and depression/ SI. Rule out organic causes will initiate patient on Keflex/doxycycline for indurated abscesses to bilateral upper extremities plan: Labs, UA, tox screen, CARE team consult Please refer to course for remaining clinical decision making, interpretation of labs/imaging results, and discussions with consultants and/or family members. Differential Diagnosis Differential Diagnoses: The differential diagnosis associated with the presentation includes As above Admission/Observation Consideration of admission/observation: Escalation of care including admission/observation considered Consult Healthcare Provider Management of the patient was discussed with: Behavioral Health Provider Lab Data [facility] Lab Attestation statement: I reviewed the patient's lab results. 07/01/23 15:11 07/01/23 15:11 Labs: Lab Results 07/01/23 07/01/23 07/01/23 Range/Units 14:13 14:13 15:11 WBC 18.1 H (4.8-10.8) X10*3/uL RBC 4.57 L D (4.60-5.80) X10*6/uL Hgb 13.2 L (14.0-18.0) g/dl Hct 37.6 L D (42.0-52.0) % MCV 82.3 (80.0-98.0) fL MCH 28.9 (27.0-33.0) pg MCHC 35.1 (31.0-36.0) g/dl RDW 15.2 (11.0-16.0) % Plt Count 401 H (160-400) X10*3/uL MPV 9.1 L (9.4-12.4) fL Immature Gran % (Auto) 0.4 (0.0-0.4) % Neut % (Auto) 89.6 H (45-73) % Lymph % (Auto) 5.1 L (20-40) % [place] % (Auto) 4.6 (2-11) % Eos % (Auto) 0.1 (0-4) % Baso % (Auto) 0.2 (0-2) % Lymph # (Auto) 0.9 L (1.2-4.9) X10*3/uL [place] # (Auto) 0.8 (0.1-1.2) X10*3/uL Eos # (Auto) 0.0 (0.0-0.4) X10*3/uL Baso # (Auto) 0.0 (0.0-0.2) X10*3/uL Abs Immat Gran (auto) 0.07 H (0.00-0.03) X10*3/uL Absolute Neuts (auto) 16.2 H (2.0-8.3) x10*3/uL Absolute Nucleated RBC 0.000 (0.0-0.012) X10*3/uL Nucleated RBC % (auto) 0.0 (0.0-0.2) /100WBC Sodium (135-145) mmol/L Potassium (3.3-5.1) mmol/L Chloride (96-108) mmol/L Carbon Dioxide (22-29) mmol/L Anion Gap (12-20) BUN (9-16) mg/dL Creatinine (0.5-1.4) mg/dL Estim Creat Clear Calc Estimated GFR Random Glucose (60-115) mg/dL Calcium (8.4-10.2) mg/dL Magnesium (1.6-2.6) mg/dL Total Bilirubin (0.0-1.0) mg/dL AST (5-37) U/L ALT (0-40) U/L Alkaline Phosphatase (39-117) U/L Total Protein (6.5-8.0) g/dL Albumin (3.5-5.0) g/dL Lipase (8-78) U/L Urine Color Dark Yellow Urine Appearance Cloudy Urine pH 5.5 (5.0-9.0) Ur Specific Amelia >= 1.030 H (1.005-1.025) Urine Protein 30 (1+) H (Neg-Trace) mg/dL Urine Glucose (UA) Negative (Negative) mg/dL Urine Ketones 40 (Negative) mg/dL Urine Blood Negative (Negative) Urine Nitrite Negative (Negative) Ur Leukocyte Esterase Negative (Negative) Urine RBC 0-2 (0-2) /HPF Urine WBC 0-5 (0-5) /HPF Ur Squamous Epith Cells 3-5 (0-2) /HPF Urine Bacteria None Seen (None Seen) Hyaline Casts 0-2 (0-2) /LPF Salicylates (15-30) mg/dL Urine Opiates Screen POSITIVE H (Not Detect) Urine Fentanyl Screen POSITIVE H (Not Detect) Acetaminophen (<30) mcg/mL Ur Barbiturates Screen Not Detected (Not Detect) Ur Phencyclidine Scrn Not Detected (Not Detect) Ur Amphetamines Screen Not Detected (Not Detect) U Benzodiazepines Scrn Not Detected (Not Detect) Urine Cocaine Screen POSITIVE H (Not Detect) U Marijuana (THC) Screen POSITIVE H (Not Detect) Ethyl Alcohol mg/dL 07/01/23 07/01/23 07/01/23 Range/Units 15:11 15:11 15:11 WBC (4.8-10.8) X10*3/uL RBC (4.60-5.80) X10*6/uL Hgb (14.0-18.0) g/dl Hct (42.0-52.0) % MCV (80.0-98.0) fL MCH (27.0-33.0) pg MCHC (31.0-36.0) g/dl RDW (11.0-16.0) % Plt Count (160-400) X10*3/uL MPV (9.4-12.4) fL Immature Gran % (Auto) (0.0-0.4) % Neut % (Auto) (45-73) % Lymph % (Auto) (20-40) % [place] % (Auto) (2-11) % Eos % (Auto) (0-4) % Baso % (Auto) (0-2) % Lymph # (Auto) (1.2-4.9) X10*3/uL [place] # (Auto) (0.1-1.2) X10*3/uL Eos # (Auto) (0.0-0.4) X10*3/uL Baso # (Auto) (0.0-0.2) X10*3/uL Abs Immat Gran (auto) (0.00-0.03) X10*3/uL Absolute Neuts (auto) (2.0-8.3) x10*3/uL Absolute Nucleated RBC (0.0-0.012) X10*3/uL Nucleated RBC % (auto) (0.0-0.2) /100WBC Sodium 140 (135-145) mmol/L Potassium 3.2 L D (3.3-5.1) mmol/L Chloride 99 (96-108) mmol/L Carbon Dioxide 31 H (22-29) mmol/L Anion Gap 13 (12-20) BUN 12 (9-16) mg/dL Creatinine 0.86 (0.5-1.4) mg/dL Estim Creat Clear Calc 111.8 Estimated GFR > 60 Random Glucose 139 H (60-115) mg/dL Calcium 9.0 (8.4-10.2) mg/dL Magnesium 2.1 (1.6-2.6) mg/dL Total Bilirubin 0.9 (0.0-1.0) mg/dL AST 67 H (5-37) U/L ALT 50 H (0-40) U/L Alkaline Phosphatase 63 (39-117) U/L Total Protein 7.0 (6.5-8.0) g/dL Albumin 3.6 (3.5-5.0) g/dL Lipase 7 L (8-78) U/L Urine Color Urine Appearance Urine pH (5.0-9.0) Ur Specific Amelia (1.005-1.025) Urine Protein (Neg-Trace) mg/dL Urine Glucose (UA) (Negative) mg/dL Urine Ketones (Negative) mg/dL Urine Blood (Negative) Urine Nitrite (Negative) Ur Leukocyte Esterase (Negative) Urine RBC (0-2) /HPF Urine WBC (0-5) /HPF Ur Squamous Epith Cells (0-2) /HPF Urine Bacteria (None Seen) Hyaline Casts (0-2) /LPF Salicylates < 5.0 L (15-30) mg/dL Urine Opiates Screen (Not Detect) Urine Fentanyl Screen (Not Detect) Acetaminophen < 17 (<30) mcg/mL Ur Barbiturates Screen (Not Detect) Ur Phencyclidine Scrn (Not Detect) Ur Amphetamines Screen (Not Detect) U Benzodiazepines Scrn (Not Detect) Urine Cocaine Screen (Not Detect) U Marijuana (THC) Screen (Not Detect) Ethyl Alcohol < 10 mg/dL Radiology Impression Discussion of test interpretation with radiology: I have reviewed the radiologist's reading. External Record Review External record reviewed: Inpatient record, Office record, Outpatient record, Prior outpatient labs, Prior outpatient radiology, Primary care record and Outside ED record Tests considered The following testing was considered but not selected: As above Prescription Management I considered prescription management with: Antibiotic Social Determinants Patient?s care significantly limited by Social Determinants of Health including: Inadequate housing, Low income, Alcoholism and drug addiction in family, Problems related to primary support group, Unemployment, Problems related to employment and Other Social Determinant of Health Discharge Plan Discharge Clinical Impression: Polysubstance abuse, Suicidal ideations, Abscess Patient Disposition: Xfer Psychiatric Hosp Transfer Details: [facility] Prescriptions: No Action bupropion HCl 150 mg tablet sustained-release 12 hr 150 mg PO BID clonidine HCl 0.1 mg tablet 0.1 mg PO TID PRN (Reason: anxiety) doxepin 25 mg capsule 25 mg PO BEDTIME pantoprazole 40 mg tablet,delayed release (DR/EC) 40 mg PO DAILY hydroxyzine HCl 25 mg tablet 25 - 50 mg PO TID PRN (Reason: Anxiety) Vyvanse 30 mg capsule 30 mg PO QAM Interventions: Marshall-Suicide Risk Severity Scale Last Done: 07/02/23 06:00
[2023-07-01 14:22] LABS: Appearance Urine Cloudy; Color Urine Dark Yellow; Glucose Urine UA Negative (Negative); Leukocyte Esterase Urine Negative (Negative); Nitrite Urine Negative (Negative); PH 5.5 (5.0-9.0); Specific Gravity - Urine >= 1.030 (1.005-1.025); UMIC TRIGGER UACC YES; Urine Blood Negative (Negative); Urine Ketones 40 mg/dL (Negative); Urine Protein 30 (1+) mg/dL (Neg-Trace)
[2023-07-01 14:24] LABS: Bacteria Urine None Seen (None Seen); Hyaline Casts Urine 0-2 /LPF (0-2); RBC Urine 0-2 /HPF (0-2); WBC Urine 0-5 /HPF (0-5)
[2023-07-01 14:33] LABS: Amphetamine Screen Urine Not Detected (Not Detect); Barbiturates, Urine Not Detected (Not Detect); Benzodiazepines Screen Urine Not Detected (Not Detect); Cannabinoid Screen Urine POSITIVE (Not Detect); Cocaine Screen Urine POSITIVE (Not Detect); Fentanyl, urine POSITIVE (Not Detect); Opiate Screen Urine POSITIVE (Not Detect); Phencyclidine Screen Urine Not Detected (Not Detect)
--- NOTE | 2023-07-01 14:57 | PC.NURSE ---
Addendum entered by Lalito Perales 07/01/23 17:15: reports drinking daily; last drink today. reports using cocaine and heroin daily. Original Note: pt axox3, vss, respirations even and unlabored, skin wpd. pt reports worsening depression x 1 wk d/t not having usual meds; he's unable to recall where he placed them. pt denies si/hi at this time; states I'm not going to kill myself I'm just done. pending lab work and UA. pt denies further questions/concerns; all needs met at this time. 15 min safety checks in place.
[2023-07-01 15:16] LABS: MANUAL DIFF FLAG NO
[2023-07-01 15:18] LABS: Basophils Percent Auto 0.2 % (0-2); Eosinophils Percent Auto 0.1 % (0-4); Hematocrit 37.6 % (42.0-52.0); Hemoglobin 13.2 g/dl (14.0-18.0); Imm Gran Abs Auto 0.07 X10*3/uL (0.00-0.03); Imm Gran Pct Auto 0.4 % (0.0-0.4); Lymphocytes Absolute Auto 0.9 X10*3/uL (1.2-4.9); Lymphocytes Percent Auto 5.1 % (20-40); Mean Corpuscular HGB Conc 35.1 g/dl (31.0-36.0); Mean Corpuscular Hemoglobin 28.9 pg (27.0-33.0); Mean Corpuscular Volume 82.3 fL (80.0-98.0); Mean Platelet Volume 9.1 fL (9.4-12.4); Monocytes Absolute Auto 0.8 X10*3/uL (0.1-1.2); Monocytes Percent Auto 4.6 % (2-11); Neutrophils Absolute Auto 16.2 x10*3/uL (2.0-8.3); Neutrophils Percent Auto 89.6 % (45-73); Platelet Count 401 X10*3/uL (160-400); Red Blood Count 4.57 X10*6/uL (4.60-5.80); Red Cell Distribution Width 15.2 % (11.0-16.0); White Blood Count 18.1 X10*3/uL (4.8-10.8)
[2023-07-01 15:31] LABS: Alanine Aminotransferase 50 U/L (0-40); Albumin Level 3.6 g/dL (3.5-5.0); Alkaline Phosphatase 63 U/L (39-117); Anion Gap 13 (12-20); Aspartate Amino Transferase 67 U/L (5-37); Bilirubin Total 0.9 mg/dL (0.0-1.0); Blood Urea Nitrogen 12 mg/dL (9-16); Carbon Dioxide 31 mmol/L (22-29); Chloride 99 mmol/L (96-108); Creatinine Clr Calc Pharmacy 111.8; Estimated Glomerular Filt Rate > 60; Ethanol < 10 mg/dL; Glucose Random 139 mg/dL (60-115); Magnesium 2.1 mg/dL (1.6-2.6); Potassium 3.2 mmol/L (3.3-5.1); Sodium 140 mmol/L (135-145)
[2023-07-01 15:57] LABS: Acetaminophen LAB < 17 mcg/mL (<30); Salicylate < 5.0 mg/dL (15-30)
[2023-07-01 16:27] LABS: Lipase 7 U/L (8-78)
[2023-07-01] MEDS: Potassium Chloride ER 20 MEQ TAB.ER.PRT 60 MEQ PO (16:41)
[2023-07-01] MEDS: Doxycycline Monohydrate 100 MG CAPSULE PO (16:41)
[2023-07-01] MEDS: cephALEXin 500 MG CAPSULE PO ×2 (16:41→19:55)
--- NOTE | 2023-07-01 18:43 | MHC.CARE ---
CARE Team attempted assessment Pt was struggling with questioning as he was under the influence of substances.
--- NOTE | 2023-07-01 19:03 | PHA.MEDREC ---
Pharmacy Consult ? Medication Reconciliation Pharmacy has reviewed the medication reconciliation completed by [facility]. Shu Hernandez, EyadD
[2023-07-01 20:02] VITALS: BP 98/56; PULSE 68; RESP 17; TEMP 36.8; O2SAT 98
--- NOTE | 2023-07-02 00:29 | PC.NURSE ---
Patient is currently in bed appears sleeping, no distress observed/reported, asymptomatic of ETOH withdrawal, VSS, disposition per care team is section 12 inpatient dual diagnosis bed search, med rec completed/pending provider's approval, behavior non cocnerning, will continue to monitor.
[2023-07-02] MEDS: cephALEXin 500 MG CAPSULE PO ×3 (01:05→13:00)
[2023-07-02] MEDS: Doxycycline Monohydrate 100 MG CAPSULE PO ×2 (05:02→13:00)
[2023-07-02 05:42] VITALS: BP 130/66; PULSE 66; TEMP 36.9; O2SAT 99
--- NOTE | 2023-07-02 10:33 | MHC.CARE ---
RAD Team conducted a dual diagnosis bed search for this individual. His referral was faxed To [facility] and his admission was accepted. Accepting info is as follows: [facility] 3pm ETA 07/02/[address] Sally Gaines No nurse to nurse necessary; all documents should be sent on ambulance with pt Pod RN was notified and will complete paperwork to book transport [address] [facility] [id number]
== END 2023-07-02 13:06 ==
PROVIDERS: Physician Assistant; Emergency Provider Student in an Organized Health Care Education/Training Program; PCP Physician Assistant
DX: F19.10 Other psychoactive substance abuse, uncomplicated (principal); R45.851 Suicidal ideations; L02.414 Cutaneous abscess of left upper limb; L02.413 Cutaneous abscess of right upper limb; B19.20 Unspecified viral hepatitis C without hepatic coma; K21.9 Gastro-esophageal reflux disease without esophagitis; Z87.820 Personal history of traumatic brain injury; F17.210 Nicotine dependence, cigarettes, uncomplicated; Z91.148 Patient's other noncompliance with medication regimen for other reason
CPT/HCPCS: 36415; 71045; 80053; 80143; 80179; 80307; 81001; 83690; 83735; 85025; 99285; S9485

== ENCOUNTER 2024-01-20 13:31 | Outpatient (AMB) | payer OTHER, SELFPAY ==
--- NOTE | 2024-01-20 13:26 | A.OFFPC_ITS ---
Intake Visit Reasons: F/U [phone] Intake Note: Last telehealth call with the patient before transitioning out of the practice to [place], addressing medication follow-up and requesting a letter for homeless verification. Hose Handler Required: No Accompanied by: Self / Same As Patient Allergies No Known Allergies Allergy (Verified 01/20/24 13:37) Medication List - Last Reconciled 01/20/24 by Ryan Summers PA-C bupropion HCl 150 mg PO BID clonidine HCl 0.1 mg PO TID PRN doxepin 25 mg PO BEDTIME hydroxyzine HCl 25 - 50 mg PO TID PRN lisdexamfetamine (Vyvanse) 30 mg PO QAM pantoprazole 40 mg PO DAILY 90 days terbinafine HCl 1% 1 appl topical BID 30 days Tobacco use date assessed: 01/20/24 Dental Screening Dental Screen Date: 01/20/24 Did you have a dental visit in the last 12 months?: Yes Did you have a dental problem in the last 6 months where you did not have access to dental care?: No HPI F/U [phone] HPI Details Patient is a 43-year-old male being evaluated today via telephone only. 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 .. CVA: Had a CVA 2004 resulting in moderate to severe memory impairment. Was followed by neurologist while in [place]. Has not had any further CVAs. He continues to have moderate memory impairment which hinders him from being able to be responsible for getting into housing and keeping is stable job. . . Opiate dependency: [facility]ues [facility] and has been sober since June of 2022. Had a small relapse in June of 2020 to though regain his sobriety quickly. .. : ADHD: he was followed by psychiatrist whom was managing his mental health medications including his ADHD medication. Has been stable on both Wellbutrin and Vyvanse .. Tobacco dependency: Reports he continues to smoke though a lot less than usual and is interested in trying nicotine gum to help him quit smoking. Has been homeless --> has been moving from place to place in sober living situations. Continues to try to maintain sobriety. Currently living in [facility]. He is interested in more stable affordable housing [facility] Medical History Anxiety Depression Hx of completed stroke Hx of hepatitis C Indigestion Surgical History No pertinent past surgical history Family History Father No problems noted. Mother No problems noted. Other Mental health disorder Substance use disorder Social History Housing: House Alcohol intake: current Alcohol intake frequency: 3 or more drinks per day Patient Tobacco Use Status: Current everyday Tobacco user Tobacco use type: Cigarette Cigarette Packs Per Day: 0.5 Cigarettes Per Day: 15 e-Cigarette/Vaping Use: Never Used Second Hand Smoke Exposure: Yes Substance Use Type: Crack/Cocaine and Heroin service: No Current occupational status: disabled Cognitive needs: No Hearing needs: No Vision needs: Yes (glasses) Questionnaire PHQ-9 Over the last 2 weeks, how often have you been bothered by any of the following problems? 1. Little interest or pleasure in doing things: not at all 2. Feeling down, depressed, or hopeless: not at all 3. Trouble falling or staying asleep, or sleeping too much: not at all 4. Feeling tired or having little energy: not at all 5. Poor appetite or overeating: not at all 6. Feeling bad about yourself - or that you are a failure or have let yourself or your family down: not at all 7. Trouble concentrating on things, such as reading the newspaper or watching television: not at all 8. Moving or speaking so slowly that other people could have noticed. Or the opposite - being so fidgety or restless that you have been moving around a lot more than usual: not at all 9. Thoughts that you would be better off or of hurting yourself in some way: not at all Total score: 0 Depression Screening Interpretation: Negative Depression Screening Done: Yes 62300 - PHQ-9 Billing: Yes Source: Developed by Drs. Jake Vasquez, Bri Alejo, Henry Stover and colleagues, with an educational phil from [employer]. Thrive Questionnaire Date Thrive assessed: 01/20/24 I am a: Patient What is your living situation today?: I do not have a steady places to live Within the past 12 months, did the food you bought not last and you didn't have the money to get more?: Never true Within the past 12 months, did you worry whether your food would run out before you got money to buy more?: Never true Do you have trouble paying for medicines?: No Do you have trouble getting transportation to medical appointments?: No Do you have trouble paying your heating and electricity bill?: No Do you have trouble taking care of your child, family member or friend?: No Do you have trouble with day-to-day activities such as bathing, preparing meals, shopping, managing finances, etc.?: No Are you currently unemployed and looking for a job?: No Are you interested in more education?: No Please select the resources that you would like help with: None Currently or been in a relationship where the following occur: no concerns reported THRIVE Score: 1 AUDIT C Alcohol Use Questionnaire (AUDIT-C) 1. How often do you have a drink containing alcohol?: Never 3. How often do you have six or more drinks on one occasion?: Never Total Score: 0 ERICKA-7 AMB Questionnaire ERICKA-7 Date ERICKA - 7 assessed: 01/20/24 Feeling nervous, anxious, or on edge: 0 = Not at all Not being able to stop or control worryin = Not at all Worrying too much about different things: 0 = Not at all Trouble relaxin = Not at all Being so restless that it is hard to sit still: 0 = Not at all Becoming easily annoyed or irritable: 0 = Not at all Feeling afraid as if something awful might happen: 0 = Not at all Total ERICKA-7 score (0-4 normal; 5-9 mild; 10-14 moderate; 15-21 severe): 0 Source: Developed by Drs. Jake Vasquez, Bri Alejo, Henry Stover and colleagues, with an educational phil from [employer]. ERICKA-7 Assessment Billing ERICKA-7 Assessment Tool: ERICKA-7 Assessment 75371 Review of Systems Const Denies headache(s) Eyes Denies loss of vision ENT Denies vertigo, Denies dizziness, Denies headache(s) and Denies sore throat Card Denies chest pain, Denies leg edema and Denies lightheadedness Resp Denies cough, Denies hemoptysis and Denies wheezing GI Denies abdominal pain, Denies melena, Denies constipation, Denies diarrhea and Denies vomiting Denies dysuria, Denies urinary frequency and Denies urinary urgency Musc Denies arthralgias, Denies joint swelling, Denies numbness and Denies tingling Neuro Denies behavioral changes, Denies vertigo, Denies dizziness, Denies headache(s), Denies loss of vision, Denies memory loss, Denies numbness and Denies tingling Psych Denies anxiety, Denies behavioral changes, Denies depression, Denies memory loss and Denies panic attacks Dov/Lymph Denies easy bleeding and Denies easy bruising Aller/Immun Denies wheezing Physical exam (Primary Care) Tobacco/Smoking Status: Tobacco use Status Tobacco use date assessed 01/20/24 01/20/24 13:31 Patient Tobacco Use Status Current everyday Tobacco 01/20/24 13:31 Tobacco use type Cigarette 01/20/24 13:31 e-Cigarette/Vaping Use Never Used 01/20/24 13:31 Are you ready to quit: No Tobacco cessation counseling provided: Yes Items discussed: Nicotine replacement Relapse Prevention: discussed the importance of a supportive environment, discussed negative mood or depression after quitting, weight gain after smoking is common and discussed dietary, exercise and/or lifestyle changes Number of minutes spent counselin CPT code: 43334 - 4-10 Minutes PHQ-9: PHQ-9 Score PHQ-9: Total score 0 01/20/24 13:32 Depression Screening Interpretation: Negative Thrive Assessment: Date of Thrive Assessment Date Thrive assessed 01/20/24 01/20/24 13:33 Currently or been in a relationship where the following occur: no concerns reported Telehealth Telehealth Location of provider rendering services: practice address Location of patient: other Patient Identification confirmed using: Name, : Yes Telehealth method: voice only Patient verbally consented to treatment: Yes Patient verbally consented to billing insurance company: Yes Patient informed of any privacy concerns related to visit: Yes Minutes spent on Phone/Video with Pt.: 11 Assessment and Plan Assessment & Plan (1) CVA (cerebrovascular accident): Code(s): I63.9 - Cerebral infarction, unspecified Qualifiers: CVA mechanism: unspecified Qualified Code(s): I63.9 - Cerebral infarction, unspecified Plan: As per HPI patient suffered acute ischemic CVA in 2004 resulting in moderate to severe memory impairment. Continues to have this memory impairment and is interested in some neuro cognitive testing through a neurologist so that he can regain services to help him better his life. 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 Was followed by psychiatrist and a therapist in the past though has lost his follow-up due to not having stable housing. (3) Tobacco use disorder: Code(s): F17.200 - Nicotine dependence, unspecified, uncomplicated Plan: patient does understand he needs to quit smoking and is willing to try nicotine gum. (4) Homelessness: Code(s): Z59.00 - Homelessness unspecified Plan: Continues to be homeless, continues to look for affordable housing. He has been living in multiple sober living situations. Continues to try to maintain sobriety (5) MDD (major depressive disorder), recurrent episode, moderate: Code(s): F33.1 - Major depressive disorder, recurrent, moderate Plan: Recently lost his therapist. Still has a psychiatrist who is managing his mental health medications. Now living in [facility] in looking for a new primary care provider in [facility]. (6) Opiate dependence: Code(s): F11.20 - Opioid dependence, uncomplicated Qualifiers: Substance use status: in remission Qualified Code(s): F11.21 - Opioid dependence, in remission Plan: Has a history of opiate dependency and now informs me he continues to try to stay clean. Unclear if he has any relapses in the last 6 months. Medications: Refilled pantoprazole 40 mg PO DAILY 90 days 90 tabs 1RF K21.9 - Gastro-esophageal reflux disease without esophagitis Coding Level of Care Code Tele Est Pt Level 4 (79339) Diagnoses Cerebrovascular accident (CVA), unspecified mechanism I63.9 CVA mechanism: unspecified Attention deficit hyperactivity disorder (ADHD), combined type F90.2 Hyperactivity presence: present Attention deficit-hyperactivity disorder type: combined inattentive- hyperactive Tobacco use disorder F17.200 Homelessness Z59.00 MDD (major depressive disorder), recurrent episode, moderate F33.1 Opioid dependence in remission F11.21 Substance use status: in remission Additional Codes ERICKA-7 Assessment Billing - ERICKA-7 Assessment Tool: ERICKA-7 Assessment 43640 ([id number]) Vital Signs *Quality* - CPT code: 30337 - 4-10 Minutes ([id number])
== END 2024-01-20 16:15 | disposition home or self-care (01) ==
PROVIDERS: PCP Physician Assistant; Visit Provider Physician Assistant
DX: F33.1 Major depressive disorder, recurrent, moderate (principal); F11.21 Opioid dependence, in remission; Z86.73 Personal history of transient ischemic attack (TIA), and cerebral infarction without residual deficits; Z59.00 Homelessness unspecified; F17.210 Nicotine dependence, cigarettes, uncomplicated; F90.2 Attention-deficit hyperactivity disorder, combined type
CPT/HCPCS: 99214

== ENCOUNTER 2025-05-16 10:22 | Outpatient (REF) | payer OTHER, SELFPAY ==
[2025-05-16 11:22] LABS: Hemoglobin 15.4 g/dl (14.0-18.0); Mean Corpuscular Hemoglobin 28.6 pg (27.0-33.0); Mean Corpuscular Volume 81.8 fL (80.0-98.0); Mean Platelet Volume 9.2 fL (9.4-12.4); Platelet Count 336 X10*3/uL (160-400); Red Blood Count 5.38 X10*6/uL (4.60-5.80); Red Cell Distribution Width 13.6 % (11.0-16.0); White Blood Count 7.4 X10*3/uL (4.8-10.8)
[2025-05-16 12:01] LABS: Alanine Aminotransferase 30 U/L (0-40); Albumin Level 4.6 g/dL (3.5-5.0); Alkaline Phosphatase 94 U/L (39-117); Anion Gap 13 (12-20); Aspartate Amino Transferase 35 U/L (5-37); Bilirubin Total 0.7 mg/dL (0.0-1.0); Blood Urea Nitrogen 21 mg/dL (9-16); Calcium 9.4 mg/dL (8.4-10.2); Carbon Dioxide 27 mmol/L (22-29); Chloride 106 mmol/L (96-108); Cholesterol 197 mg/dL (<200); Estimated Glomerular Filt Rate > 60; Glucose Fasting 93 mg/dL (60-99); HDL Cholesterol 61 mg/dL (>40); LDL Cholesterol Calculated 121 mg/dL (<100); Potassium 4.6 mmol/L (3.3-5.1); Sodium 141 mmol/L (135-145); Total Protein 7.6 g/dL (6.5-8.0); Triglycerides 77 mg/dL (<150)
== END 2025-05-16 10:23 | disposition home or self-care (01) ==
LOC: HO.HHCL 10:22
PROVIDERS: PCP Physician Assistant; Visit Provider Physician Assistant
DX: I63.9 Cerebral infarction, unspecified (principal)
CPT/HCPCS: 36415; 80053; 80061; 85027

== ENCOUNTER 2025-06-23 12:15 | Emergency (ER) | payer OTHER, SELFPAY ==
[2025-06-23 12:25] VITALS: BP 160/118; PULSE 116; O2SAT 99
[2025-06-23 12:27] VITALS: BP 133/76; PULSE 100; RESP 18; TEMP 36.6; O2SAT 99; BMI 30.4
--- NOTE | 2025-06-23 13:09 | ECG_ITS ---
Test Reason : WITHDRAWL SYMPTOMS Blood Pressure : */* mmHG Vent. Rate : 72 BPM Atrial Rate : 72 BPM P-R Int : 146 ms QRS Dur : 88 ms QT Int : 432 ms P-R-T Axes : 43 27 34 degrees QTcB Int : 473 ms Normal sinus rhythm Normal ECG When compared with ECG of 18-Oct-2021 00:13, No significant change was found Referred By: Lacie Carlson Electronically Signed By: MARY MARIA
--- NOTE | 2025-06-23 13:10 | ED_ITS ---
HPI - General Adult General Chief complaint: General Medical Stated complaint: Withdrawls Time Seen by Provider: 06/23/25 13:12 Source: patient and EMS Mode of arrival: EMS Limitations: no limitations History of Present Illness ED Provider: Lacie Carlson PA-C HPI narrative: Patient is a 45 year old assigned male at with a history of opiate use on methadone, hepatitis C, MDD, ADD, GERD, CVA, and tobacco use presenting to the emergency department today in opiate withdrawal. Patient states that he has been decreasing his methadone dose from 90mg down to 30mg with the hope of eventually transitioning to suboxone injections. Patient states that today he is having nausea, vomiting, and sweats consistent with opiate withdrawal. Patient states that a dose of ativan + clonidine will help and he does not want any additional methadone. Patient denies any dizziness, lightheadedness, abdominal pain, fever, chills, blurry vision, double vision, loss of vision, chest pain, difficulty breathing, shortness of breath, back pain, night sweats, pain with urination, increased urinary frequency, increased urinary urgency, blood in his urine or stool, syncope or a near syncopal episode, recent trauma or falls, bowel incontinence, bladder incontinence, or any other complaints at this time. Relieving factors: none Exacerbating factors: none Associated symptoms: nausea/vomiting Treatments prior to arrival: none Related Data Home Medications ?Medication ?Instructions ?Recorded ?Confirmed bupropion HCl 150 mg tablet,12 hr 150 mg PO BID 01/20/24 sustained-release clonidine HCl 0.1 mg tablet 0.1 mg PO TID PRN anxiety 07/01/23 01/20/24 doxepin 25 mg capsule 25 mg PO BEDTIME 07/01/23 hydroxyzine HCl 25 mg tablet 25 - 50 mg PO TID PRN Anx iety 07/01/23 01/20/24 lisdexamfetamine 30 mg capsule 30 mg PO QAM 07/01/23 0 01/20/24 (Graciela) Previous Rx's ?Medication ?Instructions ?Recorded terbinafine HCl 1 % topical cream 1 appl topical BID 3 0 days #30 08/18/23 grams ibuprofen 600 mg tablet 600 mg PO TID PRN pain 30 da ys #90 03/30/25 tabs aspirin 81 mg tablet,delayed 81 mg PO DAILY 90 days #9 0 tabs 04/27/25 release pantoprazole 20 mg tablet,delayed 20 mg PO DAILY 90 da ys #90 tabs 04/27/25 release lorazepam 0.5 mg tablet (Ativan) 0.5 mg PO Q6H PRN wit hdrawal 06/23/25 symptoms #3 tabs Allergies Allergy/AdvReac Type Severity Reaction Status Date / Time No Known Allergies Allergy Verified 06/23/25 12:31 Review of Systems 2 Constitutional: Constitutional: Reports no additional constitutional complaints, Denies chills, Denies fever(s) and Denies night sweats Eyes: Eyes: Reports no additional eye complaints, Denies blurry vision, Denies change in vision, Denies diplopia, Denies eye discharge, Denies loss of vision and Denies eye pain ENT: Denies dizziness Cardiovascular: Cardiovascular: Reports no additional cardiovascular complaints, Denies chest pain, Denies lightheadedness, Denies Loss of Consciousness and Denies dyspnea Respiratory: Respiratory: Reports no additional respiratory complaints and Denies dyspnea Gastrointestinal: Gastrointestinal: Reports no additional gastrointestinal complaints, Denies abdominal pain, Denies melena, Denies hematochezia, Denies change in bowel habits, Denies change in stool character, Reports nausea and Reports vomiting Genitourinary: Genitourinary: Reports no additional male genitourinary complaints, Denies hematuria, Denies oliguria, Denies difficulty urinating, Denies dysuria, Denies urinary frequency, Denies urinary hesitancy, Denies urinary incontinence and Denies urinary urgency Musculoskeletal: Musculoskeletal: Reports no additional musculoskeletal complaints, Denies numbness and Denies tingling Neurologic: Denies dizziness, Denies loss of vision, Denies numbness and Denies tingling Psychiatric: Psychiatric: Reports no additional psychiatric complaints Endocrine: Endocrine: Reports no additional endocrine complaints Hematologic/Lymphatic: Hematologic/Lymphatic: Reports no additional hematologic/lymphatic complaints Allergic/Immunologic: Allergic/Immunologic: Reports no additional allergic/immunologic complaints PMFSH Past Medical History Attestation statement: The following information was validated with the patient. Source: old records reviewed and nursing notes reviewed Medical History Indigestion Depression Anxiety Hx of hepatitis C Hx of completed stroke Surgical History No pertinent past surgical history Family History Family History Father No problems noted. Mother No problems noted. Other Mental health disorder Substance use disorder Social History Social History Housing: House Alcohol intake: current Alcohol intake frequency: 3 or more drinks per day Patient Tobacco Use Status: Current everyday Tobacco user Tobacco use type: Cigarette Cigarette Packs Per Day: 0.5 Cigarettes Per Day: 15 e-Cigarette/Vaping Use: Never Used Second Hand Smoke Exposure: Yes Substance Use Type: Crack/Cocaine and Heroin Advance Directives: No Advance Directives Information Provided: Yes Do you have a plan to hurt others: No Plan service: No Current occupational status: disabled Cognitive needs: No Hearing needs: No Vision needs: Yes (glasses) Physical Exam ED Vital Signs: Vital Signs - 24 hr 06/23/25 12:27 06/23/25 15:37 Temperature 98 F 98.2 F Pulse Rate 100 99 Respiratory Rate 18 18 Blood Pressure 133/76 128/88 Pulse Oximetry 99 99 Oxygen Delivery Method Room Air Room Air BMI result Body Mass Index 30.4 Const General: cooperative, no acute distress, alert and awake Nutritional Appearance: well nourished Orientation/consciousness: patient oriented x3 HENMT Head: Yes normal to inspection and Yes atraumatic Ears: hearing grossly normal bilaterally and external ears normal General nose exam: Normal external nose present, no nasal discharge noted and no epistaxis Face and sinus: Yes normal facial exam, No abrasion and No laceration Mouth: Normal oral and palatal mucosa present, no drooling and no muffled voice Eyes General: appearance normal, both eyes and all related structures Periorbital: periorbital findings normal Eyelids: Yes eyelids normal Conjunctivae: conjunctivae normal Pupils: Equal, round and reactive pupils present EOM: EOMs intact bilaterally Neck Neck: Yes normal visual inspection, Yes full ROM and Yes no lymphadenopathy Resp Effort & Inspection: normal respiratory effort and able to speak in complete sentences Neuro General: patient oriented x3, moves all extremities and CN's II-XI intact bilaterally Cranial nerves: Yes Equal, round and reactive pupils present Cognition (Neuro): normal cognition Extrem General: Yes normal to inspection, Yes full ROM and Yes capillary refill normal Psych Appearance: grossly normal Mental Status: mental status grossly normal Affect: normal affect Attitude: cooperative Thought process: Normal thought process present Thought content: Normal thought content present Insight: Good insight present (Psych) Medications Administered Discontinued Medications Generic Name Dose Route Start Last Admin Trade Name Thaddeus PRN Reason Stop Dose Admin Clonidine HCl 0.1 mg 06/23/25 13:12 06/23/25 13:50 Clonidine Hcl 0.1 Mg Tablet PO 06/23/25 13:13 0.1 mg ONCE ONE Administration Protocol Lorazepam 0.5 mg 06/23/25 13:12 06/23/25 13:50 Lorazepam 0.5 Mg Tablet PO 06/23/25 13:13 0.5 mg ONCE ONE Administration Naloxone HCl 8 mg 06/23/25 15:22 06/23/25 15:32 Naloxone Hcl Nasal Take Home 4 Mg [place] NOSTRILALT 06/23/25 15:23 8 mg ONCE ONE Administration Medical Decision Making Medical Decision Making MDM Narrative: Patient is a 45 year old assigned male at with a history of opiate use on methadone, hepatitis C, MDD, ADD, GERD, CVA, and tobacco use presenting to the emergency department today in opiate withdrawal. Patient's physical exam was unremarkable. Patient's blood work was unremarkable. Patient's EKG was unremarkable. Patient was given PO Ativan and Clonidine and stated he felt significantly better. I explained my physical exam findings as well as all test results to the patient. I answered all questions asked by the patient. I had an extensive conversation about the patient about his recovery options and how to safely taper off of methadone. Together, through shared decision making, we determined the patient would go home with 3 tabs of ativan for break through withdrawal symptoms and continue following with his PCP and the methadone clinic. I stressed the importance of the patient taking his medication as directed (either prescribed or as the over the counter packaging recommends). I stressed the importance of the patient following up with his primary care provider. I stressed the importance of the patient returning to the emergency department immediately if his symptoms were to worsen or if he were to develop any dizziness, shortness of breath, difficulty breathing, chest pain, blurry vision, loss of vision, nausea, vomiting, abdominal pain, fever, chills, back pain, or any other complaints. Patient verbalized agreement and understanding with this treatment plan and discharge. Differential Diagnosis Differential Diagnoses: The differential diagnosis associated with the presentation includes Opiate use Opiate withdrawal Admission/Observation Consideration of admission/observation: Escalation of care including admission/observation considered Patient would have been admitted to the hospital had his work up had any findings where hospital admission was appropriate and his clinical presentation warranted hospital admission. Lab Data [facility] Lab Attestation statement: I reviewed the patient's lab results. My interpretation of these results are in the [facility] Rationale portion of this note. 06/23/25 13:31 06/23/25 13:31 Labs: Lab Results 06/23/25 06/23/25 Range/Units 13:31 15:00 WBC 10.2 (4.8-10.8) X10*3/uL RBC 5.29 (4.60-5.80) X10*6/uL Hgb 15.2 (14.0-18.0) g/dl Hct 41.5 L (42.0-52.0) % MCV 78.4 L (80.0-98.0) fL MCH 28.7 (27.0-33.0) pg MCHC 36.6 H (31.0-36.0) g/dl RDW 13.2 (11.0-16.0) % Plt Count 317 (160-400) X10*3/uL MPV 9.0 L (9.4-12.4) fL Immature Gran % (Auto) 0.3 (0.0-0.4) % Neut % (Auto) 72.8 (45-73) % Lymph % (Auto) 20.2 (20-40) % [place] % (Auto) 5.7 (2-11) % Eos % (Auto) 0.5 (0-4) % Baso % (Auto) 0.5 (0-2) % Lymph # (Auto) 2.1 (1.2-4.9) X10*3/uL [place] # (Auto) 0.6 (0.1-1.2) X10*3/uL Eos # (Auto) 0.1 (0.0-0.4) X10*3/uL Baso # (Auto) 0.1 (0.0-0.2) X10*3/uL Abs Immat Gran (auto) 0.03 (0.00-0.03) X10*3/uL Absolute Neuts (auto) 7.4 (2.0-8.3) x10*3/uL Absolute Nucleated RBC 0.000 (0.0-0.012) X10*3/uL Nucleated RBC % (auto) 0.0 (0.0-0.2) /100WBC Sodium 143 (135-145) mmol/L Potassium 4.1 (3.3-5.1) mmol/L Chloride 109 H (96-108) mmol/L Carbon Dioxide 24 (22-29) mmol/L Anion Gap 14 (12-20) BUN 12 (9-16) mg/dL Creatinine 1.04 (0.5-1.4) mg/dL Estim Creat Clear Calc 99.1 Estimated GFR > 60 Random Glucose 89 (60-115) mg/dL Calcium 10.2 D (8.4-10.2) mg/dL Magnesium 1.8 (1.6-2.6) mg/dL Total Bilirubin 0.9 (0.0-1.0) mg/dL AST 29 (5-37) U/L ALT 23 (0-40) U/L Alkaline Phosphatase 82 (39-117) U/L Total Protein 7.6 (6.5-8.0) g/dL Albumin 4.7 (3.5-5.0) g/dL Urine Opiates Screen Not Detected (Not Detect) Ur Buprenorphine Scrn Positive H (Not Detect) ng/mL Ur Oxycodone Screen Not Detected (Not Detect) ng/mL Urine Methadone Screen Positive H (Not Detect) ng/mL Urine Fentanyl Screen Not Detected (Not Detect) Ur Barbiturates Screen Not Detected (Not Detect) Ur Phencyclidine Scrn Not Detected (Not Detect) Ur Amphetamines Screen POSITIVE H (Not Detect) U Benzodiazepines Scrn Not Detected (Not Detect) Urine Cocaine Screen Not Detected (Not Detect) U Marijuana (THC) Screen POSITIVE H (Not Detect) Independent Interpretation I performed an independent interpretation of an: EKG Interpretation: I independently interpreted this EKG and am in agreement with the below findings: Vent. Rate: 72 BPM Atrial Rate: 72 BPM P-R Int: 146 ms QRS Dur: 88 ms QT Int: 432 ms P-R-T Axes: 43 27 34 degrees QTcB Int: 473 ms Normal sinus rhythm Normal ECG When compared with ECG of 18-Oct-2021 00:13, No significant change was found DD/ 1434 Independent Historian Clinical information obtained from an independent historian. History obtained from or confirmed by: EMS (EMS provided additional history and confirmed the history provided by the patient.) Discharge Plan Discharge Clinical Impression: Opiate use Patient Disposition: Home, Self-Care Instructions: Opioid Use Disorder (ED) Additional Instructions: You may take a dose of ativan for break through withdrawal symptoms ONLY. Continue following up with your primary care provider and your methadone clinic. IF you are prescribed medications and/or you are taking over the counter medications - it is very important you continue to do so as prescribed / directed unless told otherwise. Follow up with your primary care provider. Return to the emergency department immediately if your symptoms worsen or if you develop any numbness, tingling, dizziness, shortness of breath, difficulty breathing, chest pain, blurry vision, loss of vision, nausea, vomiting, abdominal pain, fever, chills, back pain, or any other complaints. Please see the information below about our Patient Portal. If you are not yet enrolled in the [facility] Patient Portal, you will receive an enrollment email invitation following your visit to any [facility] setting. You may also self-enroll in the Patient Portal by visiting our website: [email or web address] The following information is required to access the Patient Portal: - Your [facility] Medical Record Number - Your personal home email address (must match what is in your electronic medical record, Registration staff can assist with this) - Name - Date of Capabilities of the Patient Portal: - Message some providers - View upcoming appointments - Access your health summary, medical history, and visit history - View current conditions and allergies - View procedure and lab results - View your medications, including guidelines, side effects, and precautions - Complete pre-appointment questionnaires requested by your provider - Ready summary reports of your office visits and procedures To access the Patient Portal Mobile Ben, follow these directions: - Search [employer] in the Ben Store or Google Play Store - Download the Ben - Search for [facility] - Enter your login/password Prescriptions: New lorazepam [Ativan] 0.5 mg tablet 0.5 mg PO Q6H PRN (Reason: withdrawal symptoms) Qty: 3 0RF No Action terbinafine HCl 1 % cream 1 appl topical BID 30 Days Qty: 30 2RF ibuprofen 600 mg tablet 600 mg PO TID PRN (Reason: pain) 30 Days Qty: 90 0RF aspirin 81 mg tablet,delayed release (DR/EC) 81 mg PO DAILY 90 Days Qty: 90 1RF pantoprazole 20 mg tablet,delayed release (DR/EC) 20 mg PO DAILY 90 Days Qty: 90 1RF bupropion HCl 150 mg tablet sustained-release 12 hr 150 mg PO BID clonidine HCl 0.1 mg tablet 0.1 mg PO TID PRN (Reason: anxiety) doxepin 25 mg capsule 25 mg PO BEDTIME hydroxyzine HCl 25 mg tablet 25 - 50 mg PO TID PRN (Reason: Anxiety) Vyvanse 30 mg capsule 30 mg PO QAM Referrals: Ryan Summers PA-C [Primary Care Provider, Internal Medicine] Interventions: ED Discharge Assessment Last Done: 06/23/25 15:37 Discharge Date/Time: 06/23/25 15:43 Print Language: Italian
--- NOTE | 2025-06-23 13:30 | MHC.EDTECH ---
Unable to obtain EKG due to excessive trembling. Doctor notified.
[2025-06-23 13:36] LABS: MANUAL DIFF FLAG NO
[2025-06-23 13:40] LABS: Hematocrit 41.5 % (42.0-52.0); Hemoglobin 15.2 g/dl (14.0-18.0); Imm Gran Abs Auto 0.03 X10*3/uL (0.00-0.03); Imm Gran Pct Auto 0.3 % (0.0-0.4); Lymphocytes Absolute Auto 2.1 X10*3/uL (1.2-4.9); Mean Corpuscular HGB Conc 36.6 g/dl (31.0-36.0); Mean Corpuscular Hemoglobin 28.7 pg (27.0-33.0); Mean Corpuscular Volume 78.4 fL (80.0-98.0); NRBC Abs Auto 0.000 X10*3/uL (0.0-0.012); NRBC Pct Auto 0.0 /100WBC (0.0-0.2); Platelet Count 317 X10*3/uL (160-400); Red Blood Count 5.29 X10*6/uL (4.60-5.80); White Blood Count 10.2 X10*3/uL (4.8-10.8)
[2025-06-23 13:53] LABS: Alanine Aminotransferase 23 U/L (0-40); Albumin Level 4.7 g/dL (3.5-5.0); Alkaline Phosphatase 82 U/L (39-117); Anion Gap 14 (12-20); Aspartate Amino Transferase 29 U/L (5-37); Blood Urea Nitrogen 12 mg/dL (9-16); Calcium 10.2 mg/dL (8.4-10.2); Carbon Dioxide 24 mmol/L (22-29); Chloride 109 mmol/L (96-108); Creatinine Clr Calc Pharmacy 99.1; Estimated Glomerular Filt Rate > 60; Magnesium 1.8 mg/dL (1.6-2.6); Potassium 4.1 mmol/L (3.3-5.1); Sodium 143 mmol/L (135-145); Total Protein 7.6 g/dL (6.5-8.0)
[2025-06-23 15:25] LABS: Cannabinoid Screen Urine POSITIVE (Not Detect)
[2025-06-23] MEDS: Naloxone HCl Nasal TAKE HOME 4 MG SPRAY 8 MG NOSTRILALT (15:32)
[2025-06-23 15:37] VITALS: BP 128/88; PULSE 99; RESP 18; TEMP 36.8; O2SAT 99
== END 2025-06-23 15:43 | disposition home or self-care (01) ==
PROVIDERS: Physician Assistant Medical; Emergency Provider Emergency Medicine; PCP Physician Assistant
DX: F11.23 Opioid dependence with withdrawal (principal)
CPT/HCPCS: 36415; 80053; 80307; 83735; 85025; 93005; 99284

== ENCOUNTER → 2025-06-23 13:09 | Outpatient (BNV) | payer OTHER, SELFPAY | PROVIDERS: Emergency Provider Emergency Medicine; PCP Physician Assistant; Visit Provider Internal Medicine | DX: Z13.6 Encounter for screening for cardiovascular disorders (principal) | CPT/HCPCS: 93010 ==